=== PATIENT | male | born 1940 | race Caucasian/White ===

== ENCOUNTER 2017-08-14 12:25 | Inpatient (IN) | payer MEDICARE, OTHER ==
[2017-08-14] MEDS ORDERED: Hydrocortisone TAB* 5 MG PO ONE ×2 (14:03→14:31)
--- NOTE | 2017-08-14 14:43 | ED ---
Upper Extremity Pain - HPI Summary HPI Summary: Rt hand dominant pt here w/ swollen, bruised and painful Rt arm since falling on Sunday. Denies numbness, tingling, but is limited with abilities with arm since fall. Pt resides at [facility] as an independent resident with his . Pt has many medical issues, including some cognitive/memory issues however presents as alert and oriented today. He was sent here today as an outpt for imaging per DANIEL Magana, who was told he fell and had arm swelling. A brain CT and UE XR's were ordered. Brain CT w/o acute findings however he does have a Rt forearm proximal, intra-articular ulnar fracture with distracted fragment by 1.3cm. Associated soft tissue swelling on XR correlates with clinical presentation of gross edema, ecchymosis and warmth to touch here. He is also found to have small joint effusion. He reports pain is 3/10 at rest but worse w/ movement. reports he's not on anti-coagulation however he bleeds easily. Med hx significant for adrenal insufficiency 2ndry to pituitary tumor removed and radiated years ago. He takes hydrocortisone daily in divided doses and has never taken a stress dose although this has been recommended by his initial prescriber (double his regular dose). He was due for his noon time dose of 5mg - it's now 14:00. - History of Current Complaint Chief Complaint: EDExtremityUpper Stated Complaint: RT ARM PAIN/SWELLING Time Seen by Provider: 08/14/17 12:37 Hx Obtained From: Patient, Family/Accounts Payable Assistant - - Allergies/Home Medications Allergies/Adverse Reactions: Allergies Allergy/AdvReac Type Severity Reaction Status Date / Time No Known Allergies Allergy Verified 09/27/16 14:52 Home Medications: Home Medications Carvedilol TAB* [Coreg TAB*] 3.125 mg PO BID 08/14/17 [History Confirmed ] Cholecalciferol [Vitamin D] 1,000 unit PO QAM 08/14/17 [History Confirmed ] Cyanocobalamin TAB* [Vitamin B12 TAB*] 1,000 mcg PO QAM 08/14/17 [History Confirmed 08/14/17] Dutasteride (NF) [Avodart (NF)] 0.5 mg PO DAILY 08/14/17 [History Confirmed ] Fesoterodine (NF) [Toviaz (NF)] 8 mg PO DAILY 08/14/17 [History Confirmed ] Hydrocortisone TAB* [Cortef TAB*] 15 mg PO QAM 08/14/17 [History Confirmed 08/14] Hydrocortisone TAB* [Cortef*] 5 mg PO BID 08/14/17 [History Confirmed 08/14/17] Lactobacillus Acidophilu (GG)* [Culturelle*] 1 cap PO QAM 08/14/17 [History Confirmed 08/14/17] Lisinopril TAB* [Prinivil TAB*] 5 mg PO QAM 08/14/17 [History Confirmed 08/14/17 ] Metronidazole (Topical) [Metrogel] 1 % TOPICAL DAILY 08/14/17 [History Confirmed 08/14/17] Multivitamins/Minerals TAB* [Theragran/minerals TAB*] 1 tab PO QAM 08/14/17 [ History Confirmed 08/14/17] Vhxxluvw-Morxulxvgq-Uwkurywph [Triple Antibiotic] 1 oin TOPICAL DAILY 08/14/17 [ History Confirmed 08/14/17] Pantoprazole TAB (NF) [Protonix TAB (NF)] 40 mg PO QAM 08/14/17 [History Confirmed 08/14/17] Pregabalin CAP(*) [Lyrica CAP(*)] 100 mg PO BEDTIME 08/14/17 [History Confirmed 08/14/17] PMH/Surg Hx/FS Hx/Imm Hx Previously Healthy: Yes Endocrine/Hematology History: Reports: 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 - takes synthroid, Autoimmune Disease - rosacia - metrogel, Other Endocrine/Hematological Disorders - pituatry adenoma removed: 2ndry adrenal insufficiency, thyroid, testosteron Denies: Hx Diabetes Cardiovascular History: Reports: Hx Hypertension - lisinopril, Other Cardiovascular Problems/Disorders - LBBB - takes carvedilol Denies: Hx Pacemaker/ICD Respiratory History: Reports: Hx Pneumonia - 2002, 2003 GI History: Reports: Hx Gall Bladder Disease, Hx Gastroesophageal Reflux Disease - pantoprazole 40mg, Hx Hiatal Hernia, Other GI Disorders - CHRONIC CHOLECYSTITIS History: Reports: Hx Benign Prostatic Hyperplasia, Hx Renal Disease - abnormal gfr, Other Problems/Disorders - prominent vessels in prostate - on avodart, toviaz Denies: Hx Dialysis Musculoskeletal History: Reports: Hx Back Problems - LBP - nortriptyline, lyrica - follows w/ pain management Sensory History: Reports: Hx Cataracts, Hx Contacts or Glasses, Hx Hearing Aid, Hx Hearing Problem Opthamlomology History: Reports: Hx Cataracts, Hx Contacts or Glasses Neurological History: Reports: Other Neuro Impairments/Disorders - poor memory, per patient. 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 REMOVAL BENIGN MASSES L AND R [facility] [place]. 2005 CARDIAC CATH [facility] - NO STENTING. 2011 L ANKLE [facility] - R/T INFECTION. [id number]. 08/2015 GALLBLADDER Hx Anesthesia Reactions: No Infectious Disease History: No Infectious Disease History: Denies: Traveled Outside the [place] in Last 30 Days - Family History Known Family History: Positive: None - Social History Occupation: Retired Lives: With Family - at [facility] Alcohol Amount: SMALL AMT. WINE DAILY Hx Substance Use: No Substance Use Type: Reports: None Hx Tobacco Use: Yes - not currently Smoking Status (MU): Former Smoker Amount Used/How Often: 4-5 CIGS DAILY Length of Time of Smoking/Using Tobacco: 3 YEARS Have You Smoked in the Last Year: No Review of Systems Constitutional: Negative Negative: Fever, Chills, Fatigue Eyes: Negative Negative: Photophobia, Blurred Vision, Diplopia ENT: Negative Negative: Epistaxis, Dental Pain, Sore Throat, Ear Ache Cardiovascular: Negative Respiratory: Negative Gastrointestinal: Negative Positive: no symptoms reported Positive: Arthralgia, Myalgia, Decreased ROM, Edema Positive: Bruising Neurological: Negative Negative: Headache Psychological: Normal All Other Systems Reviewed And Are Negative: Yes Physical Exam Triage Information Reviewed: Yes Vital Signs On Initial Exam: Initial Vitals Temp Pulse Resp BP Pulse Ox 97.8 F 93 18 133/83 99 08/14/17 12:34 08/14/17 12:34 08/14/17 12:34 08/14/17 12:34 08/14/17 12:34 Vital Signs Reviewed: Yes Appearance: Positive: Well-Appearing, No Pain Distress - at rest 3/10 - with movement more pain but is tolerable - does not want medication for pain at this time, Well-Nourished Skin: Positive: Warm, Skin Color Reflects Adequate Perfusion, Dry - diffuse ecchymosis and edema about the Rt forearm - most notably proximal region and distal to wrist but does not effect hand; ventral aspect of elbow and forearm w / purpuric ecchymosis; no skin breakdown observed Head/Face: Positive: Normal Head/Face Inspection - rosacea Eyes: Positive: Normal, EOMI ENT: Positive: Normal ENT inspection, Hearing grossly normal, Pharynx normal Respiratory/Lung Sounds: Positive: Breath Sounds Present Cardiovascular: Positive: Pulses are Symmetrical in both Upper and Lower Extremities Abdomen Description: Positive: Nontender, Soft Bowel Sounds: Positive: Present Musculoskeletal: Positive: Strength/ROM Intact - Rt shoulder, wrist and phalanges moving well. He reports he's been using this extremity to eat and drink since injury w/o issue, Limited @ - Rt elbow extension Neurological: Positive: Normal, Sensory/Motor Intact, Alert, Oriented to Person Place, Time, CN Intact II-III Psychiatric: Positive: Normal Procedures - Splinting Location: Rt UE Hand-Made Type: fiberglass Splint: posterior long arm Pre-Proc Neuro Vasc Exam: normal Post-Proc Neuro Vasc Exam: normal Diagnostics - Vital Signs Vital Signs Temp Pulse Resp BP Pulse Ox 08/14/17 12:34 97.8 F 93 18 133/83 99 - Laboratory Lab Statement: Any lab studies that have been ordered have been reviewed, and results considered in the medical decision making process. Re-Evaluation - Re-Evaluation First Eval Change: Improved - s/p splint Course/Dx - Course Course Of Treatment: Pt presents w/ Rt UE swelling and bruising after falling 4 days ago. He was seen by Izzy SANCHEZ at [facility] today who ordered outpt imaging. Upon images being reviewed today, he was found to have proximal ulnar fx w/ edema and effusion. His brain CT was w/o acute pathology. He was sent to the ED for further investigation of issues. He does not appear to have compartment syndrome although this could certainly develop as he has a great deal of swelling and bruising here. Discussed w/ ortho PA Jenelle Knutson who spoke w/ Dr. Aguirre - reports Dr. Aguirre will perform surgery tomorrow for pt. He will be admitted under Dr. Hortencia Lopez's service (spoke w/ her and she agrees to see pt tonight) and transitioned into hospital by myself - preop orders set as well. His evening stress dose of hydrocortisone has been ordered along with acetaminophen PRN pain but remaining meds and DVT prophylaxis withheld for physician to review. He reports improvement in pain w/ splint placement here in ED. Will be taken up to the floor. He is in stable condition. May eat until midnight at which time he will be made NPO. NOTE: Discussed w/ Dr. Mendiola. - Diagnoses Provider Diagnoses: Closed fracture of ulna, proximal, right, Adrenal insufficiency Discharge - Discharge Plan Condition: Stable Disposition: ADMITTED TO [facility]
[2017-08-14] MEDS ORDERED: Acetaminophen TAB* 325 MG PO PRN ×2 (16:48→21:25)
--- NOTE | 2017-08-14 17:44 | RAD ---
Indication: Preop. Single view of the chest demonstrates no mediastinal shift. Heart is at the upper limits of normal in size. There appears to be some reticular markings in the left lung base consistent with chronic interstitial disease unchanged from June 20, 2017. CT demonstrates interstitial markings in this area. No alveolar consolidation is noted. IMPRESSION: Likely chronic interstitial disease in left base with no definite pneumonia.
[2017-08-14 18:08] LABS: ABS Basophils 0.1 10^3/ul (0-0.2); ABS Eosinophils 0.1 10^3/ul (0-0.6); ABS Monocytes 0.7 10^3/ul (0-0.8); ABS Neutrophils 7.2 10^3/ul (1.5-7.7); ABS Nucleated RBC 0 10^3/ul; Eosinophil % 1.4 % (0-6); Hematocrit 38 % (42-52); Hemoglobin 12.5 g/dl (14.0-18.0); Mean Corpuscular HGB Conc 33 g/dl (31-36); Mean Corpuscular Hemoglobin 28 pg (27-31); Mean Corpuscular Volume 84 fL (80-94); Mean Platelet Volume 8 um3 (7.4-10.4); Nucleated Red Blood Cells % 0; Platelet Count 176 10^3/ul (150-450); Red Blood Count 4.51 10^6/ul (4.0-5.4); Red Cell Distribution Width 17 % (10.5-15); White Blood Count 9.1 10^3/ul (3.5-10.8)
[2017-08-14 18:23] LABS: INR 1.01 (0.77-1.02)
[2017-08-14 18:39] LABS: EGFR Non-African American 81.4 (>60)
[2017-08-14 18:42] LABS: Urine Appearance Clear; Urine Blood Negative (Negative); Urine Color Yellow; Urine Ketones Negative (Negative); Urine Protein Negative (Negative); Urine Specific Gravity 1.023 (1.010-1.030); Urine Urobilinogen Negative (Negative)
[2017-08-14] MEDS ORDERED: Hydrocortisone TAB* 10 MG PO ONE (20:00)
[2017-08-14] MEDS: Nortriptyline CAP* 10 MG PO SCH (22:10)
[2017-08-14] MEDS: Pregabalin CAP(*) 100 MG PO SCH (22:10)
--- NOTE | 2017-08-14 22:56 | CONS ---
CONSULTATION REPORT: DATE OF CONSULT: 08/14/17 PROVIDER: Dr. John Aguirre. CHIEF COMPLAINT: Right arm pain. HISTORY OF PRESENT ILLNESS: The patient presents to [facility] Emergency Room on 08/14/17 due to right arm pain, swelling, and bruising since 08/11/17 after falling when he slipped on the ice on Sunday. The patient typically walks with walking sticks to stabilize him and on this occasion, he did not have his sticks which he feels caused him slip on the ice. The patient is unaware if he fell on to an outstretched wrist or simply on to his right side. He did have pain immediately, but it has never been excruciating. He has continued to use his RUE with some limitation and with 3/10 pain. The patient denies any numbness, tingling, or throbbing. The patient was sent in today because he was seen by the nurse practitioner at his living facility, who sent him in for x-rays. The patient resides at [facility] as an independent resident with his . Patient reports no LOC and no other injuries with the fall. He did hit his head but denies any headaches, confusion or change in vision. The patient is on no anticoagulation. He does not take aspirin. He does bruise and bleed easily. He has had surgery in the past, which he tolerated well with no negative side effects from anesthesia. He has no history of heart attack or stroke. He does not see a network security engineer. He does not see a grocery store manager. He does have thyroid disease. He does not have diabetes. PAST MEDICAL HISTORY: His medical issues include memory issues, thyroid disease , rosacea, pituitary adenoma, adrenal insufficiency, hypertension, left bundle- branch block, GERD, BPH, renal disease. ALLERGIES: No known drug allergies. FAMILY HISTORY: Noncontributory. SOCIAL HISTORY: The patient lives at [facility] with his . He is independent. He does not smoke though did formerly. He drinks wine socially. He does not use drugs. REVIEW OF SYSTEMS: Constitutional: No fever or chills. No fatigue. Eyes: No blurred vision. No changes in vision. Head: The patient did fall on to the right side of his head he has bruising but no pain, CT was unremarkable for intracranial pathology. He does not have any pain or headache. ENT: The patient does not wear dentures and does not have any acute vision change. He he hard of hearing at baseline. Cardiovascular: No history of PA. No chest pain. No irregular beats. Respiratory: No shortness of breath. No cough. GI : No abdominal pain, nausea, vomiting, or diarrhea. : No dysuria. No difficulty with urinary stream but has HX BPH. MSK: Right arm pain s/p mechanical fall. Neurologic: No numbness or tingling. No confusion but baseline memory issues. Skin: Bruising of right arm and right side of head but no rashes or lacerations. Heme: The patient does bleed and bruise easily, though he is on no blood thinners. He has no history of blood clots. He has no history of DVT or PE. PHYSICAL EXAM: Vital Signs: Temperature 97.8, pulse 93, respiratory rate 18, oxygen saturation 99%, blood pressure 133/83. General: The patient is well- appearing. He is in no acute distress. He carries on appropriate conversation with me. HEENT: Normocephalic, atraumatic. The patient does have ecchymosis to the right temporal region, but he is nontender over this region. He does not have any palpable abnormality. Eyes: EOMI. Mouth: No dentures. No injuries to the inside of his mouth obvious. Cardio: S1, S2, 1 to 2/6 systolic murmur. Respiratory: Clear to auscultation bilaterally without wheezes , rales, or rhonchi. Abdomen: Soft, nontender. Musculoskeletal: Right upper extremity with significant ecchymosis along the volar surface of the right forearm from the elbow to the wrist. The patient is mildly tender over the entirety of this region. There is no obvious palpable bony abnormality. The patient is able to flex and extend his elbow, wrist, MCPs, DIPs and PIPs. He is able to supinate and pronate his forearm. He is able to produce range of motion of his shoulder including abduction and forward flexion. The patient has 5/5 nursing teacher strength. Forearm is edematous but is not tense. Forearm and hand are warm to touch. Neuro: Sensation is intact throughout the right upper extremity. Skin: Ecchymosis of volar aspect of right forearm from elbow to wrist. Ecchymosis of the right temporal region. Vasc: 2+ radial pulse RUE, brisk capillary refill distally. DIAGNOSTIC STUDIES/LAB DATA: Imaging of the right elbow and forearm, two views of the right forearm show a distracted proximal ulna fracture. Distracted fragment is by 1.3 cm. There is an associated soft tissue swelling. No other fractures are evident. Right elbow, 4 views of the distracted intraarticular fracture of the proximal ulna fracture. The fracture fragment is distracted approximately 1.3 cm. No other fractures are evident. There is a small joint effusion. There is mild diffuse soft tissue swelling. ASSESSMENT: Proximal ulna fracture. PLAN: The patient will be admitted by Dr. Ankita Lopez, his primary care doctor. The patient will be n.p.o. for surgery, 08/15/[address] Aguirre. She will perform an ORIF. Emergency room CYNTHIA has agreed to place the patient in a splint. Dr. Lopez will provide confirmation of medical optimization for surgery. CYNTHIA GONZALEZ [id number]/[facility] #: [id number] MTDD
[2017-08-14] MEDS: Carvedilol TAB* 3.125 MG PO SCH (23:54)
[2017-08-15] MEDS: NS 0.9% 1000 ML* 1,000 ML IV SCH ×2 (00:33→18:10)
--- NOTE | 2017-08-15 00:36 | HP ---
HISTORY AND PHYSICAL: DATE OF ADMISSION: 08/14/17 HISTORY OF PRESENT ILLNESS: Gregor Guzmán is a 77-year-old man admitted with a right olecranon fracture. The patient was in his usual state of health until 3 days ago when he was walking into his cottage at [facility] [place] from the car. He and his had been out grocery shopping. She was unloading the groceries and did not notice that he was walking without his walking sticks. [facility] he was lying on the ground on his right side. He had hit his head and over the course of the next few days, although he could use his arm and did not have significant pain, he had extensive bruising. For this reason, he was seen by the nurse practitioner, who sent him for x-rays and the olecranon fracture was discovered and so he is being admitted at this time and will be having surgery tomorrow. PAST MEDICAL HISTORY: Otherwise significant for the following medical problems: 1. Panhypopituitarism, status post removal of a pituitary tumor. 2. Chronic low back pain following a fall for which he is being treated at the [facility] and has been getting spinal corticosteroid injections. He was due to get an injection today, but this was deferred because of the present injury. 3. History of depression for which he is being treated (see medications below). 4. History of hypertension. 5. History of lymphoma, in remission. 6. History of hypertension. 7. Left bundle-branch block with mild cardiomyopathy followed by Dr. Mauri Salas from Cardiology. 8. Gastroesophageal reflux disease. 9. History of nephrolithiasis. 10. History of peptic ulcer disease with history of acute gastrointestinal bleeding due to gastric ulcer (antral, prepyloric) December 2014. 11. History of hepatic cysts and hemangiomas. 12. History of colonic adenomatous polyps. 13. History of possible cerebrovascular accident, left josé antonio September 2014. 14. History of asymptomatic pancreatic cyst. 15. History of BPH. 16. Diverticulosis. 17. History of 5 mm pulmonary nodule noted on CT, 11/13/12. PAST SURGICAL HISTORY: Prior surgeries include: 1. Pituitary adenoma surgery for pituitary tumor with acromegaly in 1983 ( transsphenoidal resection). 2. TURP in 2007 for BPH. 3. Cataract removal. 4. Tonsillectomy. 5. Cholecystectomy. CURRENT MEDICATIONS: 1. Carvedilol 3.125 mg twice a day. 2. Pantoprazole 40 mg every day. 3. Nortriptyline 10 mg 2 at bedtime. 4. Duloxetine 60 mg daily. 5. Lisinopril 5 mg daily. 6. Hydrocortisone 15 mg in the morning, 5 mg at lunch, and 5 mg in the evening. 7. Levothyroxine 100 mcg daily. 8. D3 1000 units daily. 9. B12 1000 mcg daily. 10. Testosterone injection 200 mg/mL, 200 mg IM q.14 days. 11. Acetaminophen 1000 mg daily at lunch. 12. Toviaz 8 mg daily. 13. Probiotic 1 daily. 14. MultiVites 1 daily. 15. Metronidazole gel daily. 16. Lyrica 100 mg at bedtime. 17. Dutasteride 0.5 mg daily. ALLERGIES: None. HABITS: Tobacco - none. ETOH - none at present. FAMILY HISTORY: Noncontributory. SOCIAL AND PERSONAL HISTORY: The patient is a retired physicist. He lives with his in [place] [facility] [place] [facility]. He has had a MOLST form in the past, which stated that he was do not resuscitate, but he wants to be a full code at this point. REVIEW OF SYSTEMS: Generally, he had not been feeling well because of chronic back pain, although this has been better recently. He generally walks with walking stick. Skin: He uses MetroGel for acne rosacea. HEENT: Negative. Nodes: Negative. Heme: See above. Lymphoma treated by Dr. Philip in 2015, currently in remission. Endocrine: See above. Respiratory: Negative. Cardiovascular: See above. GI: See above. : See above. Musculoskeletal: See above. Neuro: See above. Psychiatric: See above. PHYSICAL EXAMINATION GENERAL: He is an elderly white male with his right arm currently in a splint, in no acute distress. VITAL SIGNS: On coming to the emergency room, blood pressure 133/83, pulse 93, respirations 18, temperature 97.8, O2 sat is 99%. HEENT: Trauma as noted above. PERRLA. Mouth: Pharynx unremarkable. NECK: Supple. No thyromegaly. CHEST: Clear. HEART: Normal S1, S2. No murmurs, gallops or rubs. ABDOMEN: Soft, nontender. There are no masses or organomegaly. EXTREMITIES: He is able to move extremities well except for his right arm, which is in the splint. He has no evidence of hip fracture. I observed him walking to the bathroom with standby assist of an aide. NEUROLOGIC: He is intact without gross focal or lateralizing signs. SKIN: Shows ecchymosis on the right adventist area and a small ecchymosis on his right lateral thigh. He apparently has a very large ecchymosis of the right arm , but it is currently wrapped and I cannot see it. DIAGNOSTIC STUDIES/LAB DATA: CBC, WBC 9.1, H and H 12.5/38, MCV 84, PLT 176, 000. Of note, his last hematocrit was 45 on 04/16/17, so I suspect the anemia is due to blood loss into his arm. INR, PTT normal. Chemistries, sodium 130, potassium 4.3, chloride 99, CO2 of 26, BUN and creatinine 20/0.90, glucose 108, calcium 8.4. Rest of the comprehensive metabolic panel was within normal limits. Urinalysis, yellow, specific gravity 1.023, pH 5, dipsticks negative except for ascorbic acid, which is high. Chest x-ray shows no acute disease. CT of the brain showed no intracranial pathology. X-rays of the right forearm showed a distracted proximal ulnar fracture. EKG is pending. IMPRESSION: The patient with proximal ulnar fracture. The patient's spoke to orthopedist on-call, Dr. Granado. He explained that the patient would have no strength in the arm without surgery and that surgery is always done in these cases. Dr. Aguirre will be operating on the patient in the morning. The patient's will be present to discuss this with her. His usual medications are going to be continued. He will be on slightly higher doses of hydrocortisone and I will be continuing his other usual medications. IV fluids will be started at midnight when he becomes n.p.o. He is a full code. [id number]/[facility] #: [id number] MTDD
[2017-08-15] MEDS: Hydrocortisone INJ* 100 MG VIAL IV SCH ×2 (06:12→18:10)
[2017-08-15] MEDS: Levothyroxine TAB* 100 MCG TAB PO SCH (06:13)
[2017-08-15] MEDS: Carvedilol TAB* 3.125 MG PO SCH ×2 (08:14→20:49)
[2017-08-15] MEDS: Omeprazole CAP* 20 MG PO SCH (08:15)
--- NOTE | 2017-08-15 08:31 | PN ---
Progress Note - Progress Note Date of Service: 08/15/17 Note: Pt seen and examined. S/p GLF yesterday because unsteady (no walking poles). Closed R olecranon fracture Temp Pulse Resp BP Pulse Ox 97.3 F 81 18 130/79 98 08/15/17 07:39 08/15/17 07:39 08/15/17 08:00 08/15/17 07:39 08/15/17 07:39 NAD. AAOx3. pleasant and cooperative. Splint in place. SILT grossly distally. Brisk cap refill. Able to flex/ext tips of digits. Laboratory Results - last 24 hr 08/14/17 08/14/17 08/14/17 18:00 18:00 18:00 WBC 9.1 RBC 4.51 Hgb 12.5 L Hct 38 L MCV 84 MCH 28 MCHC 33 RDW 17 H Plt Count 176 MPV 8 Neut % (Auto) 79.3 Lymph % (Auto) 11.0 L [place] % (Auto) 7.4 Eos % (Auto) 1.4 Baso % (Auto) 0.9 Absolute Neuts (auto) 7.2 Absolute Lymphs (auto) 1.0 Absolute Monos (auto) 0.7 Absolute Eos (auto) 0.1 Absolute Basos (auto) 0.1 Absolute Nucleated RBC 0 Nucleated RBC % 0 INR (Anticoag Therapy) 1.01 APTT 32.8 Sodium 130 L Potassium 4.3 Chloride 99 L Carbon Dioxide 26 Anion Gap 5 BUN 20 Creatinine 0.90 Est GFR ( Amer) 104.7 Est GFR (Non-Af Amer) 81.4 BUN/Creatinine Ratio 22.2 H Glucose 108 H Calcium 8.4 L Total Bilirubin 0.70 AST 16 ALT 13 Alkaline Phosphatase 53 Total Protein 5.3 L Albumin 3.5 Globulin 1.8 L Albumin/Globulin Ratio 1.9 Urine Color Urine Appearance Urine pH Ur Specific [place] Urine Protein Urine Ketones Urine Blood Urine Nitrate Urine Bilirubin Urine Urobilinogen Ur Leukocyte Esterase Urine Glucose Urine Ascorbic Acid 08/14/17 18:10 WBC RBC Hgb Hct MCV MCH MCHC RDW Plt Count MPV Neut % (Auto) Lymph % (Auto) [place] % (Auto) Eos % (Auto) Baso % (Auto) Absolute Neuts (auto) Absolute Lymphs (auto) Absolute Monos (auto) Absolute Eos (auto) Absolute Basos (auto) Absolute Nucleated RBC Nucleated RBC % INR (Anticoag Therapy) APTT Sodium Potassium Chloride Carbon Dioxide Anion Gap BUN Creatinine Est GFR ( Amer) Est GFR (Non-Af Amer) BUN/Creatinine Ratio Glucose Calcium Total Bilirubin AST ALT Alkaline Phosphatase Total Protein Albumin Globulin Albumin/Globulin Ratio Urine Color Yellow Urine Appearance Clear Urine pH 5.0 Ur Specific [place] 1.023 Urine Protein Negative Urine Ketones Negative Urine Blood Negative Urine Nitrate Negative Urine Bilirubin Negative Urine Urobilinogen Negative Ur Leukocyte Esterase Negative Urine Glucose Negative Urine Ascorbic Acid * H A/P 77 yo RHD M with R displaced olecranon fracture Plan for ORIF R elbow today in [place]. NPO Ancef recreation facilities supervisor to [place]. NWB. will work with PT/OT tomorrow and dispo pending recommendations
[2017-08-15] MEDS ORDERED: Bupivacaine 0.25% SDV* 30 ML ONE (09:41)
[2017-08-15] MEDS ORDERED: ceFAZolin 2 GM PREMIX (*) 2 GM/50 ML BAG IVPB ONE (10:23)
[2017-08-15] MEDS ORDERED: Mivacurium Chloride* 20 MG/10 ML VIAL IV ONE (10:39)
[2017-08-15] MEDS ORDERED: Propofol* 10 MG/ML 20 ML BTL IV PUSH ONE (10:39)
[2017-08-15] MEDS ORDERED: fentaNYL* 50 MCG/ML 2 ML VIAL (100 MCG VIAL) ONE ×2 (10:39→11:54)
[2017-08-15] MEDS ORDERED: EPHEDrine (Pressors)* 50 MG/ML VIAL ONE (11:23)
[2017-08-15] MEDS ORDERED: Phenylephrine INJ* 10 MG/ML 1 ML VIAL (10 MG) ONE (12:18)
[2017-08-15] MEDS ORDERED: Metoprolol Tartrate IV* 1 MG/ML 5 ML VIAL ONE (12:18)
[2017-08-15] MEDS ORDERED: Neostigmine Methylsulfate* 2 MG/2 ML SYRINGE ONE (12:37)
[2017-08-15] MEDS ORDERED: Glycopyrrolate IV* 0.2 MG/ML 1 ML VIAL ONE (12:37)
[2017-08-15] MEDS: Acetaminophen TAB* 325 MG PO SCH (15:29)
[2017-08-15] MEDS: DULoxetine DR CAP* 60 MG CAP.DR PO SCH (15:29)
[2017-08-15] MEDS: Finasteride TAB* 5 MG PO SCH (15:30)
[2017-08-15] MEDS: FESOTERODINE 8 MG PO SCH (18:05)
[2017-08-15] MEDS ORDERED: Ibuprofen TAB* 400 MG ONE (19:51)
[2017-08-15] MEDS: Ibuprofen TAB* 400 MG PO PRN (20:49)
[2017-08-15] MEDS: Nortriptyline CAP* 10 MG PO SCH (20:50)
[2017-08-15] MEDS: Pregabalin CAP(*) 100 MG PO SCH (20:50)
--- NOTE | 2017-08-15 21:19 | RAD ---
Indication: Aspiration. Single frontal view of the chest performed at 2038 hours was reviewed. Comparison is made with previous exam dated August 14, 2017. Cardiomegaly is noted. Chronic changes are noted in the left base. No pleural fluid or pneumonia is noted. IMPRESSION: NO ACTIVE CARDIOPULMONARY DISEASE IS NOTED. CHRONIC CHANGES ARE NOTED IN THE LEFT COSTOPHRENIC ANGLE.
--- NOTE | 2017-08-16 00:29 | OP ---
CC: PCP, Ankita Lopez MD * DATE OF OPERATION: 08/15/17 - ROOM #418 DATE OF : 36 ATTENDING SURGEON: John Aguirre MD SCIENCE WRITER: CYNTHIA Anguiano and Giancarlo Maurice MS 3 ANESTHESIOLOGIST: Dr. Amezcua. ANESTHESIA: General. PRE-OP DIAGNOSIS: Right displaced olecranon fracture. POST-OP DIAGNOSIS: Right displaced olecranon fracture. OPERATIVE PROCEDURE: Open reduction, internal fixation of right olecranon. COMPLICATIONS: None. ESTIMATED BLOOD LOSS: Minimal. TOURNIQUET TIME: 47 minutes at 250 mmHg. IMPLANTS USED: Synthes proximal olecranon locking plate with the appropriate length screws. INDICATIONS: Gregor Guzmán is a 77-year-old right-hand dominant male who sustained a fall after he lost his balance outside. He landed on his elbows, was diagnosed with a displaced olecranon fracture. Risks and benefits of surgery versus nonoperative treatment were discussed at length and included but not limited to bleeding, infection, damage to nerves, vessels, surrounding structures, wound nonhealing, persistent pain, need for further surgery, scaring , stiffness, incomplete relief of symptoms, and risks of anesthesia. The patient lives in an independent living facility and has a mild amount of dementia, but otherwise is very active. Therefore, I agreed to proceed with surgery. He underwent preoperative medical risk assessment by his primary care doctor and was medically stabilized for surgery today. DESCRIPTION OF PROCEDURE: The patient was greeted in the operative area by the attending surgeon. Correct extremity was marked, consent was confirmed. The patient was brought back to the operating suite, placed in a supine position on the operating room table. He underwent general anesthesia and endotracheal intubation after which the patient was positioned in the left lateral decubitus position using a beanbag. All bony prominences were padded. He was secured with a beanbag. An axillary roll was placed. Unsterile tourniquet was placed high on the proximal arm. The splint was removed. The skin was intact with abundant bruising. The right arm was prepped and draped in the usual sterile fashion beginning with chlorhexidine soap, scrub, and alcohol wipe, and a final prep with ChloraPrep. After appropriately surgical pause indicating site, side, procedure, and administration of antibiotics, an incision centered over the distal triceps that curved laterally and down the shaft to the ulna to avoid any incision over the ulnar nerve was then made with a 15 blade. Soft tissues were carefully dissected to expose the fascia. There was abundant hematoma present. It was sharply incised for later closure. The triceps was also incised and exposed to allow for closure over the plate after surgery. The fracture fragment was identified. There was a minimal amount of comminution in the soft tissues. The soft tissue periosteum was removed from the edges of the fracture. The hematoma was removed with rongeur, the curettes, and irrigation. Once the fracture edges were cleaned, it was provisionally reduced and secured with 2 K- wires. Alignment was checked under the x-ray to make sure it was well aligned up. Once this was done, the appropriate length plate was chosen. First ,a shaft screw placed distally, with nonlocking screw was placed to provisionally position the plate. Then, proximally a locking screw was placed to allow for some compression. This was found to restore the anatomy. He was able to be fully extended and fully flexed. The K-wires were removed and the remaining screws were placed proximally. These were locking screws across the fracture site distally. Two more screws were placed. The patient was having some blood pressure. Therefore, Anesthesia requested that the case be accelerated somewhat. Final images were obtained. The wounds were copiously irrigated with sterile saline. The #2 Ethibond was used to close the triceps fascia over the plate and through the plate. A 2-0 Vicryl was used to close the fascial layer over the plate. The wounds were irrigated again. The subcutaneous tissue and skin were closed with 2-0 Vicryl and dontrell. The wound was injected with 20 cc of 0.25% Marcaine plain. Sterile dressings were applied. The tourniquet was released for a total of 47 minutes. Posterior splint was applied. He was transferred to the supine position and then gently awakened from anesthesia. He was then transferred to the PACU in guarded condition. His extremities were pink and well perfused at the end of the case. POSTOPERATIVE PLAN: He will be nonweightbearing. He will wear splint for about 10 to 14 days. He will be placed on postoperative antibiotics for approximately 10 to 14 days as well as analgesia. DVT prophylaxis will be Lovenox to heparin while in house, but he does not require any postoperatively for the surgery. He will be seen in the office in 10 to 14 days with repeat x- rays. Then, we will transition him out of the splint into a removable splint to work on elbow, hand, and wrist range of motion. I will see the patient back in 10 to 14 days and follow him in the hospital. [id number]/[facility] #: [id number] CARLEEN
[2017-08-16] MEDS: Ibuprofen TAB* 400 MG PO PRN ×2 (04:08→08:55)
[2017-08-16] MEDS: Levothyroxine TAB* 100 MCG TAB PO SCH (06:33)
[2017-08-16] MEDS: Hydrocortisone INJ* 100 MG VIAL IV SCH ×2 (06:34→18:37)
[2017-08-16 06:59] LABS: ABS Basophils 0.1 10^3/ul (0-0.2); ABS Eosinophils 0.2 10^3/ul (0-0.6); ABS Lymphocytes 1.1 10^3/ul (1.0-4.8); ABS Monocytes 0.8 10^3/ul (0-0.8); ABS Neutrophils 6.6 10^3/ul (1.5-7.7); ABS Nucleated RBC 0 10^3/ul; Eosinophil % 1.9 % (0-6); Hematocrit 37 % (42-52); Hemoglobin 12.2 g/dl (14.0-18.0); Lymphocyte % 12.3 % (25-47); Mean Corpuscular HGB Conc 33 g/dl (31-36); Mean Corpuscular Hemoglobin 28 pg (27-31); Mean Corpuscular Volume 84 fL (80-94); Mean Platelet Volume 8 um3 (7.4-10.4); Nucleated Red Blood Cells % 0.1; Platelet Count 156 10^3/ul (150-450); Red Blood Count 4.39 10^6/ul (4.0-5.4); Red Cell Distribution Width 17 % (10.5-15); White Blood Count 8.8 10^3/ul (3.5-10.8)
[2017-08-16 07:16] LABS: EGFR Non-African American 74.7 (>60)
[2017-08-16] MEDS: Omeprazole CAP* 20 MG PO SCH (07:38)
[2017-08-16] MEDS: Carvedilol TAB* 3.125 MG PO SCH ×2 (08:47→21:13)
[2017-08-16] MEDS: Finasteride TAB* 5 MG PO SCH (12:33)
[2017-08-16] MEDS: DULoxetine DR CAP* 60 MG CAP.DR PO SCH (12:33)
[2017-08-16] MEDS: Acetaminophen TAB* 325 MG PO SCH (12:34)
[2017-08-16] MEDS: ceFAZolin 1 GM in Dextrose (*) 1 GM/50 ML BAG IVPB SCH ×2 (12:54→21:06)
--- NOTE | 2017-08-16 13:48 | PN ---
Progress Note - Progress Note Date of Service: 08/16/17 SOAP: Subjective: []Patient seen at bedside. He is accompanied by his . Pain of RUE is tolerable. Denies numbness or tingling or RUE. Denies fever, chills, CP, SOB. Objective: []General: Patient is well appearing, NAD. RUE: Splint in place, CDI. Right hand with mild edema. Flexion and extension of all 5 MCPs, DIPs and PIPs intact. Sensation intact to light touch throughout right hand. Capillary refill less than 2 seconds distally. Radial pulse 2+ Vital Signs Temp 97.5 F 08/16/17 07:24 Pulse 85 08/16/17 07:24 Resp 18 08/16/17 07:24 BP 126/72 08/16/17 07:24 Pulse Ox 95 08/16/17 07:24 Intake & Output 08/15/17 08/16/17 08/16/17 18:59 06:59 18:59 Intake Total 2154 1538 220 Output Total 50 200 Balance 2104 1338 220 Intake: IV Fluids 2154 838 LR 1600 NS (0.9%) 838 IVPB 500 NS (0.9%) 500 Oral 200 220 Output: Urine 0 200 Estimated Blood Loss 50 Other: Estimated Void Large Medium # Bowel Movements 0 # Voids 2 1 Laboratory Last Values WBC 8.8 10^3/ul (3.5-10.8) 08/16/17 06:49 RBC 4.39 10^6/ul (4.0-5.4) 08/16/17 06:49 Hgb 12.2 g/dl (14.0-18.0) L 08/16/17 06:49 Hct 37 % (42-52) L 08/16/17 06:49 MCV 84 fL (80-94) 08/16/17 06:49 MCH 28 pg (27-31) 08/16/17 06:49 MCHC 33 g/dl (31-36) 08/16/17 06:49 RDW 17 % (10.5-15) H 08/16/17 06:49 Plt Count 156 10^3/ul (150-450) 08/16/17 06:49 MPV 8 um3 (7.4-10.4) 08/16/17 06:49 Neut % (Auto) 75.5 % (38-83) 08/16/17 06:49 Lymph % (Auto) 12.3 % (25-47) L 08/16/17 06:49 [place] % (Auto) 9.0 % (1-9) 08/16/17 06:49 Eos % (Auto) 1.9 % (0-6) 08/16/17 06:49 Baso % (Auto) 1.3 % (0-2) 08/16/17 06:49 Absolute Neuts (auto) 6.6 10^3/ul (1.5-7.7) 08/16/17 06:49 Absolute Lymphs (auto) 1.1 10^3/ul (1.0-4.8) 08/16/17 06:49 Absolute Monos (auto) 0.8 10^3/ul (0-0.8) 08/16/17 06:49 Absolute Eos (auto) 0.2 10^3/ul (0-0.6) 08/16/17 06:49 Absolute Basos (auto) 0.1 10^3/ul (0-0.2) 08/16/17 06:49 Absolute Nucleated RBC 0 10^3/ul 08/16/17 06:49 Nucleated RBC % 0.1 08/16/17 06:49 INR (Anticoag Therapy) 1.01 (0.77-1.02) 08/14/17 18:00 APTT 32.8 seconds (26.0-36.3) 08/14/17 18:00 Sodium 131 mmol/L (133-145) L 08/16/17 06:49 Potassium 3.8 mmol/L (3.5-5.0) 08/16/17 06:49 Chloride 101 mmol/L (101-111) 08/16/17 06:49 Carbon Dioxide 26 mmol/L (22-32) 08/16/17 06:49 Anion Gap 4 mmol/L (2-11) 08/16/17 06:49 BUN 15 mg/dL (6-24) 08/16/17 06:49 Creatinine 0.97 mg/dL (0.67-1.17) 08/16/17 06:49 Est GFR ( Amer) 96.0 (>60) 08/16/17 06:49 Est GFR (Non-Af Amer) 74.7 (>60) 08/16/17 06:49 BUN/Creatinine Ratio 15.5 (8-20) 08/16/17 06:49 Glucose 92 mg/dL (70-100) 08/16/17 06:49 Calcium 8.4 mg/dL (8.6-10.3) L 08/16/17 06:49 Total Bilirubin 1.20 mg/dL (0.2-1.0) H 08/16/17 06:49 AST 20 U/L (13-39) 08/16/17 06:49 ALT 14 U/L (7-52) 08/16/17 06:49 Alkaline Phosphatase 44 U/L (34-104) 08/16/17 06:49 Total Protein 5.3 g/dL (6.4-8.9) L 08/16/17 06:49 Albumin 3.4 g/dL (3.2-5.2) 08/16/17 06:49 Globulin 1.9 g/dL (2-4) L 08/16/17 06:49 Albumin/Globulin Ratio 1.8 (1-3) 08/16/17 06:49 Urine Color Yellow 08/14/17 18:10 Urine Appearance Clear 08/14/17 18:10 Urine pH 5.0 (5-9) 08/14/17 18:10 Ur Specific [place] 1.023 (1.010-1.030) 08/14/17 18:10 Urine Protein Negative (Negative) 08/14/17 18:10 Urine Ketones Negative (Negative) 08/14/17 18:10 Urine Blood Negative (Negative) 08/14/17 18:10 Urine Nitrate Negative (Negative) 08/14/17 18:10 Urine Bilirubin Negative (Negative) 08/14/17 18:10 Urine Urobilinogen Negative (Negative) 08/14/17 18:10 Ur Leukocyte Esterase Negative (Negative) 08/14/17 18:10 Urine Glucose Negative (Negative) 08/14/17 18:10 Urine Ascorbic Acid * (Negative) H 08/14/17 18:10 Assessment: []POD 1 SP right olecranon ORIF 08/17/17, Dr Aguirre Plan: []Ready to DC from an orthopedic standpoint. If he receives all 3 doses of cefazolin in house no further antibiotic requirement. If discharged today will need PO abx to go home. To be evaluated by medicine and PT to determine DC home vs need for rehab.
[2017-08-16] MEDS: FESOTERODINE 8 MG PO SCH (18:37)
--- NOTE | 2017-08-16 20:02 | PN ---
Progress Note - Progress Note Date of Service: 08/16/17 Note: Pt seen and examined. Pain elbow. Alert and talking on phone. No complaints of numbness and tingling. Taking PO pain meds Temp Pulse Resp BP Pulse Ox 97.6 F 93 16 132/76 94 08/16/17 19:32 08/16/17 19:32 08/16/17 19:32 08/16/17 19:32 08/16/17 19:32 NAD. RUE splint intact. able to flex/ext wrist and digits. SILT grossly distally. brisk cap refill. mild swelling A/P POD#1 from R elbow ORIF NWB continue splint. ice/elevate analgesia post op abx will sign off for now. please call with questions. f/u 10-14 days in my office [phone]
[2017-08-16] MEDS: Nortriptyline CAP* 10 MG PO SCH (21:12)
[2017-08-16] MEDS: Pregabalin CAP(*) 100 MG PO SCH (21:13)
[2017-08-17] MEDS: ceFAZolin 1 GM in Dextrose (*) 1 GM/50 ML BAG IVPB SCH (04:44)
[2017-08-17] MEDS: Levothyroxine TAB* 100 MCG TAB PO SCH (05:54)
--- NOTE | 2017-08-17 07:44 | RAD ---
INDICATION: Right elbow ORIF, right elbow pain, fracture, trauma COMPARISONS: August 14, 2017 TECHNIQUE: Fluoroscopy was provided for a surgical procedure. Total fluoroscopy time is: 34 seconds FINDINGS: Spot images demonstrate internal fixation of the proximal ulna. IMPRESSION: FLUOROSCOPY WAS PROVIDED FOR A SURGICAL PROCEDURE CPT II Codes: 6045F
[2017-08-17] MEDS: Omeprazole CAP* 20 MG PO SCH (07:50)
[2017-08-17] MEDS: Ibuprofen TAB* 400 MG PO PRN (08:15)
[2017-08-17] MEDS: Carvedilol TAB* 3.125 MG PO SCH (08:16)
[2017-08-17 08:18] VITALS: BP 143/82
[2017-08-17] MEDS ORDERED: Hydrocortisone TAB* 5 MG PO ONE (10:00)
--- NOTE | 2017-08-17 11:37 | TRS ---
CC: Marysol Jaquez, [place]; [facility] Coulter at [facility], Resident Care; Dr. Nicolás Sanford DISCHARGE SUMMARY: DATE OF ADMISSION: 08/14/17 DATE OF DISCHARGE: 08/17/17 DISCHARGE DIAGNOSES: 1. Right olecranon fracture. 2. Postoperative delirium. 3. Panhypopituitarism, status post removal of pituitary tumor with acromegaly. 4. Chronic low back pain. 5. History of depression. 6. History of hypertension. 7. History of lymphoma, in remission. 8. Left bundle branch block with mild cardiomyopathy. 9. Gastroesophageal reflux disease. 10. History of peptic ulcer disease. 11. History of nephrolithiasis. 12. History of hepatic cyst and hemangiomas. 13. History of adenomatous polyps of the colon. 14. History of possible cerebrovascular accident, left josé antonio, September 2014. 15. History of asymptomatic pancreatic cyst. 16. History of benign prostatic hypertrophy. 17. Diverticulosis. 18. History of 5-mm pulmonary nodule noted on CT, 11/13/12. 19. Status post transurethral resection of the prostate. 20. Status post cataract removal. 21. Status post cholecystectomy. 22. Status post tonsillectomy. PROCEDURES: Open reduction, internal fixation, right olecranon, for displaced fracture. HISTORY: Gregor Guzmán is a 77-year-old man admitted after having fallen, found to have a right olecranon fracture. Please see the dictated admission note for details of the present illness, past medical history, family history, social and personal history, review of systems, and physical examination. DIAGNOSTIC STUDIES/LAB DATA: CBC: WBC 9.1, H and H 12.5/38, MCV 84, PLT 176K. CBC on 08/16/17: WBC 8.8, H and H 12.2/37, MCV 84, PLT 156K. INR 1.01, PTT 32.8. Chemistries on admission: Sodium 130, potassium 4.3, chloride 99, CO2 26 , BUN and creatinine 20/0.9, glucose 108, calcium 8.4. Otherwise comprehensive metabolic panel was abnormal only for protein of 5.3, globulin 1.8. Chemistries on 08/16/17: Sodium 131, potassium 3.8, chloride 101, CO2 26, BUN and creatinine 15/0.97, calcium 8.4, total bilirubin 1.20, total protein 5.3, globulin 1.9. Of note, he has had chronically low globulins. Urinalysis: Yellow, clear, specific gravity 1.023, pH 5. Dipsticks positive for ascorbic acid. Imaging: Chest on 08/14/17 showed chronic interstitial disease in the left base , no definite pneumonia. Fluoroscopy was done during surgery. Chest x-ray, 08/15/17, showed no active cardiopulmonary disease, chronic changes noted. EKG, on 08/15/17, showed left bundle branch block. This had been seen intermittently previously as well. Operative report, 08/15/17: Open reduction, internal fixation of right olecranon with Synthes proximal olecranon locking plate with appropriate length screws. HOSPITAL COURSE: The patient was admitted for medical management of his panhypopituitarism in the perioperative period. He was seen in consultation by Orthopedics. Operative repair was recommended. He received mild stress doses of steroids with doubling of his usual hydrocortisone dose in the perioperative period on 08/14/2017, 08/15/17 and 08/16/17. His arm was splinted. His other usual medications were continued. IV fluids were given in the perioperative period. He received perioperative antibiotics. He had postoperative delirium which seemed to clear with time. . He has mild memory loss at baseline. His H and H dropped a bit likely due to large amount of blood in his arm and this will be followed as an outpatient. He is being transferred to the [facility]. He was to be nonweightbearing with the right arm. He is to receive physical and occupational therapy. He had an occupational therapy evaluation prior to discharge. MEDICATIONS: At the time of discharge, his medications are as follows: 1. Acetaminophen 975 mg p.o. q.6h. p.r.n. pain and 975 mg p.o. at noon with maximum daily dose of 3 g. 2. Ibuprofen 400 mg q.4h. p.r.n. pain. 3. Carvedilol 3.125 mg twice daily. 4. Duloxetine 60 mg daily. 5. Dutasteride 0.5 mg p.o. daily. 6. Hydrocortisone 15 mg a.m., 5 mg lunch, 5 mg dinner. 7. Levothyroxine 100 mcg daily. 8. Toviaz 8 mg p.o. daily. 9. Nortriptyline 20 mg at h.s. 10. Pantoprazole 40 mg daily. 11. Lyrica 100 mg q.h.s. 12. Lisinopril 5 mg daily. 13. Metronidazole applied to nose q.h.s. 14. Probiotic 1 p.o. daily. 15. Triple antibiotic applied to nose q.a.m. 16. Testosterone enanthate 150 mg injection every 2 weeks. 17. B12 1000 mcg daily. 18. D3 1000 units daily. 19. Multiple vitamin 1 p.o. daily. Lab orders: CBC, CMP, quantitative immunoglobulins, and free testosterone and total testosterone on 08/20/17, and the diagnosis for that is hypogammaglobulinemia and panhypopituitarism. Of note, this is a draft discharge summary and information in this discharge summary should be interpreted with caution until the dictation is signed. [id number]/[facility] #: [id number] MTDD
[2017-08-17] MEDS: Acetaminophen TAB* 325 MG PO SCH (12:17)
[2017-08-17] MEDS: DULoxetine DR CAP* 60 MG CAP.DR PO SCH (12:18)
[2017-08-17] MEDS: Finasteride TAB* 5 MG PO SCH (12:18)
[2017-08-17] MEDS ORDERED: Cephalexin CAP* 500 MG PO SCH (14:00)
== END 2017-08-17 12:10 | DRG 511 ==
LOC: ED 12:25 → MED 16:48 → OBSVTOIN 08-15 14:15 → MED 08-15 14:55
PROVIDERS: ADMIT Internal Medicine Geriatric Medicine; ATTEND Internal Medicine Geriatric Medicine
PROC: 0PSK04Z Reposition Right Ulna with Internal Fixation Device, Open Approach (ICD-10-PCS; principal; 2017-08-15 11:30)
DX: S52.021A Displaced fracture of olecranon process without intraarticular extension of right ulna, initial encounter for closed fracture (principal); F05 Delirium due to known physiological condition; E23.0 Hypopituitarism; D50.0 Iron deficiency anemia secondary to blood loss (chronic); I44.7 Left bundle-branch block, unspecified; W18.39XA Other fall on same level, initial encounter; Y92.039 Unspecified place in apartment as the place of occurrence of the external cause; M54.5 Low back pain; F32.9 Major depressive disorder, single episode, unspecified; K21.9 Gastro-esophageal reflux disease without esophagitis; I10 Essential (primary) hypertension; K25.9 Gastric ulcer, unspecified as acute or chronic, without hemorrhage or perforation; N40.0 Benign prostatic hyperplasia without lower urinary tract symptoms; Z86.73 Personal history of transient ischemic attack (TIA), and cerebral infarction without residual deficits; Z85.72 Personal history of non-Hodgkin lymphomas; Z79.1 Long term (current) use of non-steroidal anti-inflammatories (NSAID); Z79.890 Hormone replacement therapy; Z79.899 Other long term (current) drug therapy; Z87.891 Personal history of nicotine dependence
CPT/HCPCS: 36415; 70450; 71045; 76000; 80053; 81003; 85025; 85610; 85730; 93005; 99212; 99283; A9270-GY; C1713; C1776; G0378; G0463; J0690; J1720; J2704; J3010; J3490

== ENCOUNTER 2017-09-27 05:39 | Emergency (ER) | payer MEDICARE, OTHER ==
--- OUTSIDE RECORDS SUMMARY | 2017-09-27 07:21 | XMS REPORT ---
:1940 External Reference #:[id number] Author Organization [facility] Address [address] [address] Phone [phone] Care Team Providers Name Role Phone Ankita Lopez MD Primary Care Physician Unavailable Payers Type Date Identification Numbers Payment Provider Subscriber Medicare Primary Policy Number: [id number] Medicare Gregor Ashshubhamoft PayID: [id number] [address] [place] [address] Commercial Policy Number: [id number] [facility] Gregor Ashshubhamoft Group Number: [id number] [address] PayID: [id number] [place] [address] Commercial Policy Number: [id number] [facility] Gregor Ashshubhamoft PayID: [id number] [address] [place] [address] Problems Date Description Provider Status Onset: 07/07/2013 Contusion of lower leg CHAS Grier Active Onset: 12/23/2014 Unsteady gait Soni Sanders M.D. Active Onset: 12/23/2014 Cerebrovascular disease Soni Sanders M.D. Active Family History Date Family Member(s) Problem(s) Comments General Cancer Father due to Leukemia () Mother due to Natural Causes () Mother due to hemochromatosis () - both sons Social History Type Date Description Comments Marital Status Lives With Spouse Occupation Retired Physicist at [employer] Cigarette Use Never Smoked Cigarettes ETOH Use Currently consumes alcohol 1/2 drink once daily Smoking Patient is a former smoker smoked few months - pipe Daily Caffeine Consumes on average 1 cup of regular coffee per day Daily Caffeine Consumes on average 1 cup of hot tea per day Exercise Type/Frequency Exercises sporadically walking Allergies, Adverse Reactions, Alerts Date Description Reaction Status Severity Comments 12/22/2014 Effexor active Possible 12/22/2014 Bupropion "Odd looking spots" active Moderate 12/22/2014 Amitriptyline GI Distress active Moderate to Severe 04/03/2013 NKDA inactive Medications Medication Date Status Form Strength Qnty SIG Indications Ordering Provider Simvastatin 12/23/ Active Tablets 10mg 60tab 1 tablet I67.9 Soni Gardner 2014 s daily Caio Sanders Tramadol HCL 12/22/ Active Tablets 50mg 40tab 2 tablets Soni Gardner 2014 s every 4-6 wily Sanders as M.DDeisy needed Levothyroxine / Active Tablets 100mcg 1 by mouth Unknown Sodium 0000 every day Metrogel / Active Gel 1% apply once Unknown 0000 daily as directed for rosacea Vitamin D3 / Active Capsules 1000Unit 1 by mouth Unknown 0000 every day Vitamin B-12 / Active Tablets 1 by mouth Unknown 0000 every day Acetaminophen PM / Active Tablets 500-25mg take 1 to 2 Unknown Extra Strength 0000 tablets by mouth every evening as needed for overactive bladder Pantoprazole / Active Tablets DR 40mg 1 by mouth Unknown Sodium 0000 every day Lisinopril 0000/ Active Tablets 2.5mg 1 by mouth Unknown 0000 every day Carvedilol 00/ Active Tablets 3.125mg daily Unknown 0000 Hydrocortisone / Active Tablets 5mg 3 every Unknown 0000 morning, 1 every afternoon and 1 every evening Probiotic // Active Capsules 1 by mouth Unknown 0000 every day Sertraline HCL 00/ Active Tablets 50mg 1 by mouth Unknown 0000 every day Sleep Optimizer / Active daily Unknown 0000 Modafinil 09/16/ Hx Tablets 100mg 3tabs one po qday Fabiana 2012 Violetta Finch 11/21/ atsrufus, 2015 N.P. Keflex 01/07/ Hx Capsules 500mg 21cap 1 po bid Juan Granado 12/21/ Caio 2015 Delatestryl 00/00/ Hx Solution 200mg/ml 0.5mL Im q Unknown 0000 - 2 weeks 2014 Modafinil /00/ Hx Tablets 200mg 1 by mouth Unknown 0000 - every day 2014 Cortef /00/ Hx Tablets 10mg 1+1/2 tabs Unknown 0000 - po qam, 12 06/23/ tab qnoon, 2014 1/2 tab qpm Ambien CR 00/ Hx Tablets ER 6.25mg 1/4 tab po Unknown 0000 - every night 04/14/ at bedtime 2014 as needed Lexapro 00/00/ Hx Tablets 10mg 1 by mouth Unknown 0000 - every day 2014 Tylenol /00/ Hx Tablets 325mg 1 tab po Unknown 0000 - qid as 2014 Triamcinolone / Hx Cream 0.1% apply thin Unknown Acetonide 0000 - film twice 06/23/ daily to 2014 affected area prn Simethicone / Hx Strip PO pc Unknown 0000 - 2014 Tylenol With / Hx Tablets 300-30mg 1 tab by Unknown Codeine #3 0000 - mouth every 06/23/ 4 to 6 2015 hours as needed Elmiron /00/ Hx Capsules 100mg 1 po qd Unknown 0000 - 2014 Medications Administered in Office Medication Date Status Form Strength Qnty SIG Indications Ordering Provider Inj, Administered Injection Mauri Esquivel Regadenoson, 015 Walter, 0.1 MG FACC Technetium TC Administered Injection Mauri S. 99M 015 Walter, DO Tetrofosmin, FACC Per Unit Dose Up To 40 Millicuries Immunizations CPT Code Status Date Vaccine Lot # [id number] Given 08/05/2009 Influenza Virus Vaccine, Pandemic Formulation Vital Signs Date Vital Result Comment 08/28/2017 Height 70 inches 5'10" Weight 184.00 lb BP Systolic 122 mmHg BP Diastolic 82 mmHg Respiratory Rate 20 /min Body Temperature 98.1 F Pain Level 4 BMI (Body Mass Index) 26.4 kg/m2 07/08/2015 Height 70 inches 5'10" Weight 184.00 lb no shoes Heart Rate 78 /min BP Systolic Sitting 126 mmHg Ra, reg cuff BP Diastolic Sitting 82 mmHg Ra, reg cuff BP Systolic Standing 120 mmHg Ra BP Diastolic Standing 84 mmHg Ra Respiratory Rate 16 /min BMI (Body Mass Index) 26.4 kg/m2 Ejection Fraction 50-55% 06/23/15 06/24/2015 Height 70 inches 5'10" Weight 188.00 lb Heart Rate 72 /min BP Systolic Sitting 118 mmHg BP Diastolic Sitting 68 mmHg Respiratory Rate 16 /min BMI (Body Mass Index) 27.0 kg/m2 04/15/2015 Height 70 inches 5'10" Weight 194.00 lb with shoes Heart Rate 84 /min BP Systolic Sitting 136 mmHg LA, reg cuff BP Diastolic Sitting 84 mmHg LA, reg cuff BP Systolic Standing 130 mmHg LA BP Diastolic Standing 86 mmHg LA Respiratory Rate 14 /min BMI (Body Mass Index) 27.8 kg/m2 Ejection Fraction 40-45% 04/07/15 03/31/2015 Height 70 inches 5'10" Weight 192.00 lb Heart Rate 88 /min BP Systolic 138 mmHg Ra reg cuff BP Diastolic 88 mmHg Ra reg cuff BP Systolic Sitting 142 mmHg LA reg cuff BP Diastolic Sitting 92 mmHg LA reg cuff BP Systolic Standing 128 mmHg LA BP Diastolic Standing 80 mmHg LA Respiratory Rate 16 /min BMI (Body Mass Index) 27.5 kg/m2 Ejection Fraction 60-65% 09/26/05 12/23/2014 Height 70 inches 5'10" Weight 194.00 lb Heart Rate 80 /min BP Systolic Sitting 142 mmHg BP Diastolic Sitting 86 mmHg Respiratory Rate 16 /min BMI (Body Mass Index) 27.8 kg/m2 04/17/2013 Heart Rate 72 /min BP Systolic 134 mmHg BP Diastolic 78 mmHg Respiratory Rate 20 /min Body Temperature 97.2 F 04/03/2013 Height 70 inches 5'10" Weight 209.00 lb Heart Rate 72 /min BP Systolic 134 mmHg BP Diastolic 74 mmHg Respiratory Rate 20 /min Body Temperature 96.5 F BMI (Body Mass Index) 30.0 kg/m2 Results Test Date Test Result H/L Range Note Laboratory test finding 03/31/2015 Troponin-I (TnI) 0.02 ng/mL <0.03 1, 2 CBC Auto Diff 01/11/2015 White Blood Count 7.5 10^3/uL 4.8-10.8 Red Blood Count 4.05 10^6/uL 4.0-5.4 Hemoglobin 12.7 g/dL Low 14.0-18.0 Hematocrit 40 % Low 42-52 Mean Corpuscular Volume 98 fL High 80-94 Mean Corpuscular Hemoglobin 31 pg 27-31 Mean Corpuscular HGB Conc 32 g/dL 31-36 Red Cell Distribution Width 18 % High 10.5-15 Platelet Count 228 10^3/uL 150-450 Mean Platelet Volume 9 um3 7.4-10.4 Abs Neutrophils 4.7 10^3/uL 1.5-7.7 Abs Lymphocytes 2.1 10^3/uL 1.0-4.8 Abs Monocytes 0.5 10^3/uL 0-0.8 Abs Eosinophils 0.1 10^3/uL 0-0.6 Abs Basophils 0.1 10^3/uL 0-0.2 Abs Nucleated RBC 0.01 10^3/uL Granulocyte % 61.8 % 38-83 Lymphocyte % 28.5 % 25-47 Monocyte % 6.9 % 1-9 Eosinophil % 1.9 % 0-6 Basophil % 0.9 % 0-2 Nucleated Red Blood Cells % 0.1 Laboratory test finding 01/11/2015 Folic Acid (Folate) > 20.00 ng/mL & gt;3.99 Vitamin B12 710 pg/mL 180-914 3 Methylmalonic Acid Mma 0.38 nmol/mL <=0.40 4 H Pylori Iga 01/11/2015 Helicobacter pylori IgA Ab Negative Negative H pylori IgA Ab Index 5.48 5 H.Pylori Igg AB 01/11/2015 Helicobacter pylori IgG Ab Negative Negative H pylori IgG AB Index 3.52 6 H.Pylori Igm AB 01/11/2015 Helicobacter pylori IgM Ab Negative Negative H pylori IgM AB Index 15.[address] WALTER WITH RESULTS GAYE REGARDLESS ON CELL # [phone]. [id number] Reference Range and Interpretation: TnI (ng/mL) Interpretation Less Than 0.03 ng/mL Not supportive of diagnosis of PR 0.03 - 0.50 ng/mL Indeterminate: suggest serial studies if clinically indicated. Greater than 0.5 ng/mL Consistent with diagnosis of PR 3 Normal Range 180 to 914 Indeterminate Range 145 to 180 Deficient Range <145 4 Test Performed by: [address] [address] [employer] Metal Worker: Mirza Ann II, M.D., Ph.D. 5 Results with Index Values of <18.00 are negative. Test Performed by: [facility] - [address] [address] [employer] Worker: Mirza Ann II, M.D., Ph.D. 6 Results with Index Values of <8.95 are negative. Test Performed by: [facility] - [address] [address] [employer] Worker: Mirza Ann II, M.D., Ph.D. 7 Results with Index Values of <36.00 are negative. Test Performed by: [address] [address] [employer] Worker: Mirza Ann II, M.D., Ph.D. Procedures Date CPT Code Description Status 08/15/2017 90617 FX Ulna Proximal (Olecranon) Open TX W/Wo Fixation Completed 08/15/2017 29680 FX Ulna Proximal (Olecranon) Open TX W/Wo Fixation Completed 08/20/2015 34374 Laparoscopy Cholecystectomy Completed 06/23/2015 72077 ECHO Transthoracic, Real-Time 2D With Doppler And Color Completed Flow 04/07/2015 20920 ECHO Transthoracic, Real-Time 2D With Doppler And Color Completed Flow 04/06/2015 16062 Stress Test Completed 04/06/2015 87045 Myocardial Perfusion Imaging Tomographic (Spect) Completed Multiple Studies 03/31/2015 96516 EKG Tracing & Interpretation Completed 12/26/2011 51536 I&D Leg Or Ankle;Deep Abscess Or Hematoma Completed 12/26/2011 03151 I&D Leg Or Ankle;Deep Abscess Or Hematoma Completed Encounters Type Date Location Provider CPT E/M Dx Office Visit 07/08/2015 [facility] [place] [address] I44.7 8:40a [facility] FAC I10 E23.0 I11.9 Office Visit 06/24/2015 11:45a [facility] Soni Sanders, 20204 I67.9 [facility] [place] R26.81 Office Visit 04/15/2015 2:00p [facility] [place] [address] I44.7 [facility] FAC R53.83 I10 I42.9 Office Visit 03/31/2015 1:00p [facility] [place] [address] 426.3 [facility] FACC 780.79 272.4 786.09 Office Visit 12/23/2014 9:30a [facility] Soni JimenezDeisy Sanders, 84745 781.2 M.Art 437.9 Office Visit 04/17/2013 3:20p [facility] Nursing Fabiana Porter, 86908 529.8 Home N.P. Office Visit 04/03/2013 4:47p [facility] Fabiana Porter, 45683 789.03 Home N.P. 527.7 Office Visit 12/22/2011 10:00a [facility] [place], 408[address] 682.6 C.MBinu [place] Office Visit 12/06/2009 8:15a [facility] [place] [address] 844.9 C.M.ADeisy Office Visit 11/17/2009 10:30a [facility] [place] [address] 844.9 C.M.ADeisy Plan of Care Future Appointment(s):09/27/2017 10:00 am - John Aguirre MD at [facility]
--- NOTE | 2017-09-27 08:04 | RAD ---
HISTORY: Fall, head trauma COMPARISONS: September 07, 2017, MRI of the head dated May 29, 2003 TECHNIQUE: Multiple contiguous axial CT scans were obtained of the head without intravenous contrast. FINDINGS: HEMORRHAGE/INFARCT: There is no hemorrhage or acute infarct. MASSES/SHIFT: There is no mass or shift. EXTRA-AXIAL SPACES: There is asymmetry of the right cavernous sinus which reflects an arachnoid cyst that can be identified on the MRI of May 29, 2003 stable accounting for differences in technique. SULCI AND VENTRICLES: The sulci and ventricles are normal in size and position for the patient's stated age. CEREBRUM: There is hypoattenuation of the periventricular and subcortical white matter. BRAINSTEM: There are no focal parenchymal abnormalities. CEREBELLUM: There are no focal parenchymal abnormalities. VESSELS: There is calcification of the cavernous segments of the internal carotid arteries bilaterally and of the distal vertebral arteries bilaterally. PARANASAL SINUSES: The paranasal sinuses are clear. ORBITS: The orbits are unremarkable. BONES AND SOFT TISSUE: No bone or soft tissue abnormalities are noted. OTHER: None IMPRESSION: 1. NO ACUTE INTRACRANIAL PATHOLOGY. 2. 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
[2017-09-27 08:06] VITALS: BP 146/94
--- NOTE | 2017-09-27 20:08 | ED ---
Sacha Luciano Stephanie, scribed for Marino Galan MD on 09/27/17 at 0613 . Complex/Multi-Sys Presentation - HPI Summary HPI Summary: The pt is a 77 y/o M BIBA to the ED with c/o fall that occurred at 05:15 today. The pt states he is unaware of how he fell. The pt is unsure if he tripped or lost his balance. The pt denies dizziness and LOC. The pt states that recently he has had a few falls. He states he uses canes to walk. The pt states that after he fell he was able to stand up again. The pt reports head trauma. - History Of Current Complaint Chief Complaint: EDHeadInjury Time Seen by Provider: 09/27/17 05:52 Hx Obtained From: Patient Onset/Duration: Lasting Hours - 1, Still Present Severity Currently: None Associated Signs And Symptoms: Positive: Other - Negative: LOC. 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 - takes synthroid, Other Endocrine/Hematological Disorders - pituatry adenoma removed: 2ndry adrenal insufficiency, thyroid, testosteron Denies: Hx Diabetes Cardiovascular History: Reports: Hx Hypertension, Other Cardiovascular Problems/ Disorders - LBBB - takes carvedilol Denies: Hx Pacemaker/ICD Respiratory History: Reports: Hx Pneumonia - 2003 GI History: Reports: Hx Gall Bladder Disease - had chuck'y, Hx Gastroesophageal Reflux Disease - pantoprazole 40mg, Hx Hiatal Hernia, Other GI Disorders - CHRONIC CHOLECYSTITIS History: Reports: Hx Benign Prostatic Hyperplasia, Hx Renal Disease - abnormal gfr, Other Problems/Disorders - prominent vessels in prostate - on avodart, toviaz Denies: Hx Dialysis Musculoskeletal History: Reports: Hx Back Problems - LBP - nortriptyline, lyrica - follows w/ pain management Sensory History: Reports: Hx Cataracts, Hx Contacts or Glasses, Hx Hearing Aid, Hx Hearing Problem Opthamlomology History: Reports: Hx Cataracts, Hx Contacts or Glasses Neurological History: Reports: Other Neuro Impairments/Disorders - poor memory, per patient. 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 REMOVAL BENIGN MASSES L AND R [facility]. 2005 CARDIAC CATH [facility] - NO STENTING. 2011 L [facility] - R/T INFECTION. [id number]. 08/2015 GALLBLADDER Hx Anesthesia Reactions: No Infectious Disease History: No Infectious Disease History: Denies: Traveled Outside the [place] in Last 30 Days - Family History Known Family History: Positive: None - Social History Occupation: Retired Lives: Assisted Living Alcohol Use: Daily Alcohol Amount: SMALL AMT. WINE DAILY Hx Substance Use: No Substance Use Type: Reports: None Hx Tobacco Use: Yes - not currently Smoking Status (MU): Former Smoker Amount Used/How Often: 4-5 CIGS DAILY Length of Time of Smoking/Using Tobacco: 3 YEARS Have You Smoked in the Last Year: No Review of Systems Negative: Fever Neurological: Other - Negative: dizziness Psychological: Other - Negative: LOC All Other Systems Reviewed And Are Negative: Yes Physical Exam - Summary Physical Exam Summary: VITAL SIGNS: Reviewed. GENERAL: Patient is a well-developed and nourished MALE who is lying comfortable in the stretcher. Patient is not in any acute respiratory distress. HEAD AND FACE: No signs of trauma. No ecchymosis, hematomas or skull depressions. No sinus tenderness. red area at the occipital region measured about 3 cm in diameter, seems like a rug rash. EYES: PERRLA, EOMI x 2, No injected conjunctiva, no nystagmus. EARS: Hearing grossly intact. Ear canals and tympanic membranes are within normal limits. MOUTH: Oropharynx within normal limits. NECK: Supple, trachea is midline, no adenopathy, no JVD, no carotid bruit, no c- spine tenderness, neck with full ROM. CHEST: Symmetric, no tenderness at palpation LUNGS: Clear to auscultation bilaterally. No wheezing or crackles. CVS: Regular rate and rhythm, S1 and S2 present, no murmurs or gallops appreciated. ABDOMEN: Soft, non-tender. No signs of distention. No rebound no guarding, and no masses palpated. Bowel sounds are normal. EXTREMITIES: FROM in all major joints, no edema, no cyanosis or clubbing. Pt Is wearing a sling to his RUE due to surgery a few months ago. NEURO: Alert and oriented x 3. No acute neurological deficits. Speech is normal and follows commands. SKIN: Dry and warm Triage Information Reviewed: Yes Vital Signs On Initial Exam: Initial Vitals Temp Pulse Resp BP Pulse Ox 97.2 F 91 18 152/102 94 09/27/17 05:44 09/27/17 05:44 09/27/17 05:44 09/27/17 05:44 09/27/17 05:44 Vital Signs Reviewed: Yes Diagnostics - Vital Signs Vital Signs Temp Pulse Resp BP Pulse Ox 09/27/17 05:44 97.2 F 91 18 152/102 94 - Laboratory Lab Statement: Any lab studies that have been ordered have been reviewed, and results considered in the medical decision making process. Complex Multi-Symp Course/Dx - Diagnoses Provider Diagnoses: Head injury, Scalp contusion Discharge - Discharge Plan Condition: Stable Disposition: HOME Patient Education Materials: Head Injury (ED), Scalp Contusion in Adults (ED) Referrals: Ankita Lopez MD [Primary Care Provider] - 3 Days Additional Instructions: RETURN TO EMERGENCY DEPARTMENT FOR ANY NEW OR WORSENING SYMPTOMS The documentation as recorded by the Sacha iniguez Stephanie accurately reflects the service I personally performed and the decisions made by , Marino Galan MD.
== END 2017-09-27 08:03 | disposition home or self-care (01) ==
LOC: ED 05:39
DX: S00.03XA Contusion of scalp, initial encounter (principal); W19.XXXA Unspecified fall, initial encounter; Y92.9 Unspecified place or not applicable; I67.2 Cerebral atherosclerosis; I65.23 Occlusion and stenosis of bilateral carotid arteries; Z91.81 History of falling; Z87.891 Personal history of nicotine dependence
CPT/HCPCS: 70450; 99282

== ENCOUNTER 2018-01-18 14:54 | Emergency (ER) | payer MEDICARE, OTHER ==
--- OUTSIDE RECORDS SUMMARY | 2018-01-18 15:18 | XMS REPORT ---
:1940 External Reference #:[id number] Author Organization [facility] Address [address] [id number] Phone [phone] Care Team Providers Name Role Phone Ankita Lopez M.D. Care Team Information Sheet Mill Supervisor Unavailable Ankita Lopez M.D. Primary Care Physician Unavailable Payers Type Date Identification Numbers Payment Provider Subscriber Medicare Primary Policy Number: [id number] [place] [employer] Gregor Guzmán SRVS PayID: [id number] [address] [place] [address] Medigap Part B Policy Number: [id number] [facility] Insurance Applimation Gregor Guzmán PayID: [id number] [address] [place] [address] Problems Date Description Provider Status Onset: 01/14/2018 Bleeding from nose Hernan De Los Santos MD Active Onset: 01/14/2018 Deviated nasal septum Hernan De Los Santos MD Active Onset: 11/22/2015 Unspecified sensorineural hearing loss Hernan De Los Santos MD Active Onset: 11/22/2015 Impacted cerumen Hernan De Los Santos MD Active Family History Date Family Member(s) Problem(s) Comments General Cancer General Migraine General Thyroid Disease Social History Type Date Description Comments Occupation Physicist Cigarette Use Former Cigarette Smoker Packs Daily 1/2 for 3 years Cigars Never Smoked Cigars Pipe Never Smoked A Pipe Smokeless Tobacco Never Used Smokeless Tobacco ETOH Use Current Alcohol Use Occasionally Allergies, Adverse Reactions, Alerts Date Description Reaction Status Severity Comments 03/11/2009 NKDA active Medications Medication Date Status Form Strength Qnty SIG Indications Ordering Provider Hydrocortisone 00// Active Tablets 20mg as Jessica, 0000 directed Ankita [place] Pantoprazole 00/00/ Active Tablets DR 20mg 1 by Jessica, Sodium 0000 mouth Ankita [place] every day Carvedilol / Active Tablets 3.125mg 1 by Lopez, 0000 mouth Ankita [place] twice a day Dutasteride / Active Capsules 0.5mg daily Unknown 0000 Metrogel / Active Gel 1% QHS to Unknown 0000 nose Levothyroxine / Active Tablets 100mcg daily Unknown Sodium 0000 Mylanta / Active Suspension 200-200-2 as Unknown 0000 0mg/5ML directed Tylenol Extra / Active Tablets 500mg as needed Unknown Strength 0000 Ibuprofen / Active Tablets 400mg prn Unknown 0000 Guaifenesin / Active Solution 100mg/5ML as Unknown 0000 directed Testosterone / Active Solution 200mg/ml 0.5ML Qow Unknown Enanthate 0000 Lyrica / Active Capsules 50mg QHS Unknown 0000 Liothyronine / Active Tablets 5mcg daily Unknown Sodium 0000 Vitamin D3 / Active Capsules 1000Unit 1 by Unknown 0000 mouth every day Vitamin B-12 ER 00/ Active Tablets ER 1000mcg take once Unknown 0000 daily Culturelle / Active Capsules 1 by Unknown 0000 mouth every day Hydrocortisone // Hx Unknown 2015 Levoxyl / Hx Unknown 2015 Lexapro / Hx Unknown 2015 Vitamin D // Hx Unknown 2015 Vitamin B / Hx Unknown Complex 2015 Flomax / Hx Caps ER 24HR 0.4mg Unknown 2015 Thyroxine / Hx As Lopez, 0000 - directed Ankita [place] 2017 Escitalopram / Hx Tablets 10mg 1 by Unknown Oxalate 0000 - mouth 01/14/ every day 2018 Immunizations CPT Code Status Date Vaccine Lot # [id number] Given Unknown Pneumococcal Vaccine 2Yrs Or Older 67973 Given Unknown Influenza Virus Vaccine, 3 Years Of Age And Above, Intramuscular Vital Signs Date Vital Result Comment 01/14/2018 Weight 200.00 lb Weight in kg's 90.720 Height 71 inches 5'11" Height in cm's 180.3 cm BMI (Body Mass Index) 27.9 kg/m2 11/22/2015 BP Systolic 115 mmHg BP Diastolic 78 mmHg Heart Rate 78 /min Respiratory Rate 16 /min 03/11/2009 BP Systolic 118 mmHg BP Diastolic 75 mmHg Heart Rate 71 /min Respiratory Rate 16 /min Results Description No Information Procedures Date CPT Code Description Status 01/14/2018 89644 Removal Wax Impaction Completed 01/14/2018 93006 Control Nasal Hemorrhage (Extensive Cautery/Packing) Completed Any Method 06/29/2016 84865 Removal Wax Impaction Completed 11/22/2015 97380 Removal Wax Impaction Completed 03/19/2009 73679 Binocular Microscopy Completed 03/17/2009 92242 Binocular Microscopy Completed 03/15/2009 79688 Binocular Microscopy Completed 03/11/2009 16813 Removal Wax Impaction Completed Encounters Type Date Location Provider CPT E/M Dx Office Visit 01/14/2018 9:15a [place] 07/23/07 [place] [address] H61.23 J34.2 R04.0 Office Visit 11/22/2015 10:30a [place],After 07/23/07 [place] [address] H61.23 H90.5 Office Visit 03/24/2009 10:00a [place],After 07/23/07 [place] [address] 380.10 Office Visit 03/19/2009 9:30a [place],After 07/23/07 [place] [address] 380.10 Office Visit 03/17/2009 10:30a [place],After 07/23/07 [place] [address] 380.10 Office Visit 03/15/2009 9:45a [place],After 07/23/07 [place] [address] 380.10 Plan of Care 01/14/2018 - Hernan De Los Santos MDH61.23 Impacted cerumen, bilateralComments:The patient's cerumen impaction was cleaned without difficulty.J34.2 Deviated nasal kgncjcR35.0 EpistaxisComments:The patient was treated with silver nitrate cautery. We discussed that a scab will form and may bleed when it comes off in a week. The patient was instructed to let it mature and fall off on its own. I have given the patient our epistaxis instruction sheet, which includes information on how to carefor the nose at this time, and if there is further bleeding.
--- OUTSIDE RECORDS SUMMARY | 2018-01-18 15:18 | XMS REPORT ---
:1940 External Reference #:[id number] Author Organization [facility] [place] Address [address] [address] Phone [phone] Care Team Providers Name Role Phone Ankita Lopez MD Primary Care Physician Unavailable Payers Type Date Identification Numbers Payment Provider Subscriber Medicare Primary Policy Number: [id number] Medicare Gregor Ashcroft PayID: [id number] [address] [place] [address] Commercial Policy Number: [id number] [facility] Gregor Ashcroft Group Number: [id number] [address] PayID: [id number] [place] [address] Commercial Policy Number: [id number] [facility] Gregor Ashcroft PayID: [id number] [address] [place] [address] Problems Date Description Provider Status Onset: 07/07/2013 Contusion of lower leg CHAS Grier Active Onset: 12/23/2014 Unsteady gait Soni Sanders M.D. Active Onset: 12/23/2014 Cerebrovascular disease Soni Sanders M.D. Active Onset: 08/28/2017 Closed fracture of olecranon process John Aguirre MD Active of ulna Onset: 10/09/2017 Contusion of hand John Aguirre MD Active Onset: 10/09/2017 Fall John Aguirre MD Active Onset: 12/21/2017 Hypersomnia Nils Panchal M.D. Active Onset: 12/21/2017 Chronic fatigue syndrome Nils Panchal M.D. Active Onset: 12/21/2017 Orthostatic hypotension Nils Panchal M.D. Active Onset: 12/21/2017 Syncope and collapse Nils Panchal M.D. Active Onset: 12/21/2017 Amnesia Nils Panchla M.D. Active Family History Date Family Member(s) Problem(s) Comments General Cancer General Stroke General Hypertension Father due to Leukemia () Mother due to Natural Causes () Mother due to hemochromatosis () - both sons Children 2 Siblings 6 Three Brothers . Three Sisters alive and healthy Social History Type Date Description Comments Marital Status Lives With Adult family home sandi Occupation Retired Physicist at [employer] Cigarette Use Never Smoked Cigarettes ETOH Use Denies alcohol use Smoking Patient is a former smoker smoked few months - pipe Daily Caffeine Consumes on average 1 cup of regular coffee per day Daily Caffeine Consumes on average 1 cup of hot tea per day Daily Caffeine consumes chocolate frequently Exercise Type/Frequency Exercises sporadically walking Exercise Type/Frequency pt 3x a week Allergies, Adverse Reactions, Alerts Date Description Reaction Status Severity Comments 12/22/2014 Effexor active Possible 12/22/2014 Bupropion "Odd looking spots" active Moderate 12/22/2014 Amitriptyline GI Distress active Moderate to Severe 04/03/2013 NKDA inactive Medications Medication Date Status Form Strength Qnty SIG Indications Ordering Provider Levothyroxine Active Tablets 100mcg 1 by mouth Unknown Sodium /0000 every day Metrogel Active Gel 1% apply once Unknown /0000 daily as directed for rosacea Vitamin D3 Active Capsules 1000Unit 1 by mouth Unknown /0000 every day Acetaminophen Active Tablets 500mg 2 by mouth Unknown /0000 4-6 hpurs as needed. Pantoprazole Active Tablets DR 40mg 1 by mouth Unknown Sodium /0000 every day Carvedilol Active Tablets 3.125mg one by Unknown /0000 mouth twice daily Multi For Him 00 Active Tablets daily Unknown 50+ /0000 Mylanta Active Suspension 200-200-2 prn Unknown /0000 0mg/5ML Ibuprofen 200 Active Tablets 200mg 400-600mg Unknown /0000 every 6 hours as needed for pain. Hydrocortisone 00 Active Tablets 10mg Every Unknown /0000 night, 20MG every morning Guaifenesin Active Liquid 100mg/5ML 5 Unknown /0000 milliliters by mouth every 4 hours as needed for cough Testosterone Active Solution 200mg/ml inject 1 Unknown Enanthate /0000 milliliter intramuscul shemar every 2 weeks -- maximum dose 1 milliliter (200mg) every 2 weeks Duloxetine HCL Active Caps DR Part 30mg 2 by mouth Unknown /0000 every day Lyrica Active Capsules 50mg 1 by mouth Unknown /0000 every evening Dutasteride Active Capsules 0.5mg one tab Unknown /0000 once daily Dulcolax Active Suppository 10mg one Unknown suppository by way of rectum as needed daily for constipatio n Enema Active Enema 1 Unknown Disposable /0000 application rectally as needed Ibu Active Tablets 400mg every 4 Unknown /0000 hours as needed Liothyronine Active Tablets 5mcg 1 by mouth Unknown Sodium /0000 every day Centrum Ultra Active Tablets one daily Unknown Mens /0000 Vitamin B12 Active Tablets ER 1000mcg once daily Unknown /0000 Culturelle Active Capsules once daily Unknown Digestive /0000 Health Lyrica 10/15 Hx Capsules 100mg 30cap 1 cap by Izzy s mouth every [place], - day at [facility] INTERVENTIONIST 11/20 bedtime Simvastatin 12/23 Hx Tablets 10mg 60tab 1 tablet I67.9 Soni MDeisy s daily Violetta Sanders M.D. 10/25 Tramadol HCL 12/22 Hx Tablets 50mg 40tab 2 tablets Soni MDeisy s every 4-6 [place], - hours as M.D. 10/25 needed Modafinil 09/16 Hx Tablets 100mg 3tabs one po qday Fabiana Dm-Linnea - atson, 11/21 N.P. /2014 Keflex 01/07 Hx Capsules 500mg 21cap 1 po bid Violetta Daniels M.D. 12/21 Delatestryl Hx Solution 200mg/ml 0.5mL Im q Unknown / 2 weeks - 06/23 Modafinil 00 Hx Tablets 200mg 1 by mouth Unknown /0000 every day - 06/23 Cortef Hx Tablets 10mg 1+1/2 tabs Unknown /0000 po qam, 1/2 - tab qnoon, 06/23 1/2 tab q Ambien CR / Hx Tablets ER 6.25mg 1/4 tab po Unknown /0000 every night - at bedtime 04/14 as needed /2014 Lexapro Hx Tablets 10mg 1 by mouth Unknown /0000 every day - 04/14 Vitamin B-12 Hx Tablets 1 by mouth Unknown /0000 every day - 11/20 Tylenol Hx Tablets 325mg 1 tab po Unknown /0000 qid as - needed 06/23 Triamcinolone Hx Cream 0.1% apply thin Unknown Acetonide /0000 film twice - daily to 06/23 area prn Simethicone Hx Strip PO pc Unknown /0000 - 06/23 Tylenol With Hx Tablets 300-30mg 1 tab by Unknown Codeine #3 /0000 mouth every - 4 to 6 06/23 hours needed Elmiron 00 Hx Capsules 100mg 1 po qd Unknown /0000 - 04/14 Lisinopril Hx Tablets 5mg 1 by mouth Unknown /0000 every day - 12/05 Hydrocortisone 0000 Hx Tablets 10mg once daily Unknown /0000 - 11/20 Probiotic 00/ Hx Capsules 1 by mouth Unknown /0000 every day - 11/20 Sertraline HCL 00 Hx Tablets 50mg 1 by mouth Unknown /0000 every day - 10/25 Sleep Optimizer 00/00 Hx daily Unknown /0000 - 10/25 Toviaz 0000 Hx Tablets ER 8mg 1 by mouth Unknown /0000 24HR every day - 11/19 Tylenol Extra Hx Tablets 500mg 2 by mouth Unknown Strength /0000 as needed - 12/20 Medications Administered in Office Medication Date Status Form Strength Qnty SIG Indications Ordering Provider Inj, Administered Injection Mauri Wilcox, 015 DO Josue 0.1 MG FACC Technetium TC Administered Injection Mauri Esquivel 99M 015 DO Josue Tetrofosmin, FACC Per Unit Dose Up To 40 Millicuries Immunizations CPT Code Status Date Vaccine Lot # [id number] Given 08/05/2009 Influenza Virus Vaccine, Pandemic Formulation Vital Signs Date Vital Result Comment 12/21/2017 Height 71 inches 5'11" Weight 190.00 lb Heart Rate 80 /min BP Systolic Sitting 118 mmHg BP Diastolic Sitting 80 mmHg Respiratory Rate 16 /min BMI (Body Mass Index) 26.5 kg/m2 12/06/2017 Height 71 inches 5'11" Weight 194.50 lb with shoes Heart Rate 76 /min BP Systolic Sitting 120 mmHg Lue reg cuff BP Diastolic Sitting 82 mmHg Lue reg cuff Respiratory Rate 16 /min BMI (Body Mass Index) 27.1 kg/m2 Ejection Fraction 50-55% date 06/23/15 ECHO 11/20/2017 Heart Rate 84 /min BP Systolic 122 mmHg BP Diastolic 82 mmHg Respiratory Rate 16 /min Body Temperature 96.8 F 10/26/2017 Height 70 inches 5'10" Weight 199.00 lb Heart Rate 80 /min BP Systolic Sitting 102 mmHg lue reg cuff BP Diastolic Sitting 58 mmHg lue reg cuff BP Systolic Standing 90 mmHg lue reg cuff BP Diastolic Standing 50 mmHg lue reg cuff Respiratory Rate 16 /min BMI (Body Mass Index) 28.6 kg/m2 Ejection Fraction 50-55% 06/23/2015 10/09/2017 Height 70 inches 5'10" Weight 184.00 lb Heart Rate 90 /min BP Systolic Sitting 108 mmHg BP Diastolic Sitting 70 mmHg Respiratory Rate 16 /min Pain Level 0 BMI (Body Mass Index) 26.4 kg/m2 09/28/2017 Height 70 inches 5'10" Weight 184.00 lb Respiratory Rate 18 /min Body Temperature 97.9 F Pain Level 0 BMI (Body Mass Index) 26.4 kg/m2 08/28/2017 Height 70 inches 5'10" Weight 184.00 [...] Test Result H/L Range Note Laboratory test 03/31/2015 Troponin-I (TnI) 0.02 ng/mL <0.03 1, 2 finding H.Pylori Igm AB 01/11/2015 Helicobacter pylori IgM Negative Negative Ab H pylori IgM AB Index 15.80 3 H.Pylori Igg AB 01/11/2015 Helicobacter pylori IgG Ab Negative Negative H pylori IgG AB Index 3.52 4 H Pylori Iga 01/11/2015 Helicobacter pylori IgA Ab Negative Negative H pylori IgA Ab Index 5.48 5 Laboratory test finding 01/11/2015 Folic Acid (Folate) > 20.00 ng/mL > 3.99 Vitamin B12 710 pg/mL 180-914 6 Methylmalonic Acid Mma 0.38 nmol/mL <=0.40 7 CBC Auto Diff 01/11/2015 White Blood Count [...] 0-2 Nucleated Red Blood Cells % 0.[address] SALAS WITH RESULTS GAYE REGARDLESS ON CELL # [phone]. [id number] 2 Reference Range and Interpretation: TnI (ng/mL) Interpretation Less Than 0.03 ng/mL Not supportive of diagnosis of OH 0.03 - 0.50 ng/mL Indeterminate: suggest serial studies if clinically indicated. Greater than 0.5 ng/mL Consistent with diagnosis of OH 3 Results with Index Values of <36.00 are negative. Test Performed by: [address] [address] City Wellness Coordinator: Mirza Ann II, M.D., Ph.D. 4 Results with Index Values of <8.95 are negative. Test Performed by: [address] [address] City Wellness Coordinator: Mirza Ann II, M.D., Ph.D. 5 Results with Index Values of <18.00 are negative. Test Performed by: [address] [address] [facility] Wellness Coordinator: Mirza Ann II, M.D., Ph.D. 6 Normal Range 180 to 914 Indeterminate Range 145 to 180 Deficient Range <145 7 Test Performed by: [place] [address] City Wellness Coordinator: Mirza Ann II, M.D., Ph.D. Procedures Date CPT Code Description Status 10/26/2017 42809 EKG Tracing & Interpretation Completed 10/17/2017 96673 Holter Monitor Review (24 hr)dr review & interp only Completed 09/07/2017 15914 EEG Recording Awake & Drowsy Completed 08/15/2017 45330 FX Ulna Proximal (Olecranon) Open TX W/Wo Fixation Completed 08/15/2017 40458 FX Ulna Proximal (Olecranon) Open TX W/Wo Fixation Completed 08/20/2015 03953 Laparoscopy Cholecystectomy Completed 06/23/2015 17802 ECHO Transthoracic, Real-Time 2D With Doppler And Color Completed Flow 04/07/2015 84122 ECHO Transthoracic, Real-Time 2D With Doppler And Color Completed Flow 04/06/2015 28329 Stress Test Completed 04/06/2015 23742 Myocardial Perfusion Imaging Tomographic (Spect) Completed Multiple Studies 03/31/2015 31193 EKG Tracing & Interpretation Completed 12/26/2011 25601 I&D Leg Or Ankle;Deep Abscess Or Hematoma Completed 12/26/2011 36667 I&D Leg Or Ankle;Deep Abscess Or Hematoma Completed Encounters Type Date Location Provider CPT E/M Dx Office Visit 12/21/2017 [place] Panchal M.D. 97352 R41.1 8:30a [facility] R26.81 R55 I95.1 I67.9 R53.82 G47.10 Office Visit 12/06/2017 11:20a [facility] [place] [address] I44.7 [facility] FAC I95.1 E23.0 Office Visit 11/20/2017 9:45a [facility] [place] [address] S52.021A C.M.A. S52.021D Office Visit 10/26/2017 2:20p [facility] [address] I95.1 [facility] FACC R55 I44.7 Office Visit 09/28/2017 2:00p [facility] [place] [address] S52.021A C.M.A. W19.xxxA S60.221A Office Visit 08/14/2017 8:15a [facility] [place] [address] S52.031A Of C.M.A. Office Visit 07/08/2015 8:40a [facility], [address] I44.7 [facility] DO FACC I10 E23.0 I11.9 Office Visit 06/24/2015 11:45a [facility] Soni Sanders, [address] I67.9 [facility] R26.81 Office Visit 04/15/2015 2:00p [facility] [place] [facility] [address] I44.7 [facility] FACC R53.83 I10 I42.9 Office Visit 03/31/2015 1:00p [facility] Alvin [facility], [address] 426.3 [facility] FACC 780.79 272.4 786.09 Office Visit 12/23/2014 9:30a [facility] Soni Sanders, [address] 781.2 M.DDeisy 437.9 Office Visit 04/17/2013 3:20p [facility] Fabiana Porter, [address] 529.8 Home N.P. Office Visit 04/03/2013 4:47p [facility] Fabiana Porter, 36167 789.03 Home N.P. 527.7 Office Visit 12/22/2011 10:00a [facility] [place], [address] 682.6 C.M.A. MDeisyDDeisy Office Visit 12/06/2009 8:15a [facility] [place] [address] 844.9 C.M.A. Office Visit 11/17/2009 10:30a [facility] [place] [address] 844.9 C.M.A. Plan of Care Future Appointment(s):02/22/2018 10:00 am - Nils Panchal M.D. at [facility]12/21/2017 - Nils Panchal M.D.R41.1 Anterograde amnesiaFollow up:Follow up in 6 cwlizI21.81 Unsteadiness on feetR55 Syncope and ylmzrastI90.1 Orthostatic zcbcewtwdbnX53.9 Cerebrovascular disease, unspecifiedNew Xrays:MRI Brain W/OMra Head W/OMra Neck W/WoR53.82 Chronic fatigue, unspecifiedReferral:Sabrina Griffin MD, Pulmonary YdlxwehxZ11.10 Hypersomnia, unspecifiedNew Orders:Sleep StudyReferral:Sabrina Griffin MD, Pulmonary Diseases
[2018-01-18] MEDS ORDERED: Lidocaine 4% TOPICAL* 50 ML TOP.SOLN TOPICAL ONE (15:46)
[2018-01-18] MEDS ORDERED: Phenylephrine 1% NASAL* 15 ML BOT RIGHT NARE ONE (15:46)
[2018-01-18] MEDS ORDERED: Silver Nitrate/Potassium Nitr* 1 EA STICK TOPICAL ONE (17:14)
[2018-01-18] MEDS ORDERED: Lidocaine 4% GEL* 10 GM TUBE TOPICAL ONE (19:00)
[2018-01-18] MEDS ORDERED: Amoxicillin PO (*) 250 MG CAP PO ONE (20:01)
[2018-01-18 20:47] VITALS: BP 149/90
--- NOTE | 2018-01-18 21:35 | ED ---
Derick Luciano Angela, scribed for Sahil Liz MD on 01/18/18 at 1545 . Throat Pain/Nasal Congestion - HPI Summary HPI Summary: This pt is a 77 y/o male presenting to [facility] for epistaxis today. Pt reports he had cauterization with packing done [address] De Los Santos, ENT. states pt was getting a head CT today and while pt was in the bathroom he began to have bleeding from his nose. CT was ordered by Dr. Panchal after he found abnormalities in MRI and MRA. Pt has not had anything to eat or drink since breakfast, per . Pt denies any anticoagulants. 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 - takes synthroid, Other Endocrine/Hematological Disorders - pituatry adenoma removed: 2ndry adrenal insufficiency, thyroid, testosteron Denies: Hx Diabetes Cardiovascular History: Reports: Hx Hypertension, Other Cardiovascular Problems/ Disorders - LBBB - takes carvedilol Denies: Hx Pacemaker/ICD Respiratory History: Reports: Hx Pneumonia - 2002, 2003 GI History: Reports: Hx Gall Bladder Disease - had chuck'y, Hx Gastroesophageal Reflux Disease - pantoprazole 40mg, Hx Hiatal Hernia, Other GI Disorders - CHRONIC CHOLECYSTITIS History: Reports: Hx Benign Prostatic Hyperplasia, Hx Renal Disease - abnormal gfr, Other Problems/Disorders - prominent vessels in prostate - on avodart, toviaz Denies: Hx Dialysis Musculoskeletal History: Reports: Hx Back Problems - LBP - nortriptyline, lyrica - follows w/ pain management Sensory History: Reports: Hx Cataracts, Hx Contacts or Glasses, Hx Hearing Aid, Hx Hearing Problem Opthamlomology History: Reports: Hx Cataracts, Hx Contacts or Glasses Neurological History: Reports: Other Neuro Impairments/Disorders - poor memory, per patient. 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 REMOVAL BENIGN MASSES L AND R [facility]. 2005 CARDIAC CATH [facility] - NO STENTING. 2011 L [facility] - R/T INFECTION. [id number]. 08/2015 GALLBLADDER Hx Anesthesia Reactions: No Infectious Disease History: No Infectious Disease History: Denies: Traveled Outside the [place] in Last 30 Days - Family History Family History: Father: leukemia. Brother: pancreatic CA - Social History Alcohol Use: Daily Alcohol Amount: SMALL AMT. WINE DAILY Hx Substance Use: No Substance Use Type: Reports: None Hx Tobacco Use: Yes - not currently Smoking Status (MU): Former Smoker Amount Used/How Often: 4-5 CIGS DAILY Length of Time of Smoking/Using Tobacco: 3 YEARS Have You Smoked in the Last Year: No Review of Systems Negative: Fever, Chills Positive: Epistaxis Genitourinary: Negative Musculoskeletal: Negative Skin: Negative Neurological: Negative All Other Systems Reviewed And Are Negative: Yes Physical Exam - Summary Physical Exam Summary: Appearance: The patient is well-nourished in no acute distress and in no acute pain. Skin: The skin is warm and dry and skin color reflects adequate perfusion. HEENT: The head is normocephalic and atraumatic. The pupils are equal and reactive. The conjunctivae are clear and without drainage. Nares are patent and without drainage. Mouth reveals moist mucous membranes and the throat is without erythema and exudate. The external ears are intact. The ear canals are patent and without drainage. The tympanic membranes are intact. Neck: the neck is supple with full range of motion and non-tender. There are no carotid bruits. There is no neck vein distension. Respiratory: Chest is non-tender. Lungs are clear to auscultation and breath sounds are symmetrical and equal. Cardiovascular: Heart is regular rate and rhythm. There is no murmur or rub auscultated. There is no peripheral edema and pulses are symmetrical and equal. Abdomen: The abdomen is soft and non-tender. There are normal bowel sounds heard in all four quadrants and there is no organomegaly palpated. Musculoskeletal: There is no back tenderness noted. Extremities are non-tender with full range of motion. There is good capillary refill. There is no peripheral edema or calf tenderness elicited. Neurological: Patient is alert and oriented to person, place and time. Psychiatric: The patient has an appropriate affect and does not exhibit any anxiety or depression. Triage Information Reviewed: Yes Vital Signs On Initial Exam: Initial Vitals Temp Pulse Resp BP Pulse Ox 98.8 F 91 18 151/101 98 01/18/18 14:57 01/18/18 14:57 01/18/18 14:57 01/18/18 14:57 01/18/18 14:57 Vital Signs Reviewed: Yes Diagnostics - Vital Signs Vital Signs Temp Pulse Resp BP Pulse Ox 01/18/18 14:57 98.8 F 91 18 151/101 98 - Laboratory Lab Statement: Any lab studies that have been ordered have been reviewed, and results considered in the medical decision making process. Re-Evaluation - Re-Evaluation First Eval Re-Evaluation Time: 17:51 Comment: Pt's nose is still bleeding Second Eval Re-Evaluation Time: 19:30 Comment: Rhinorocket placed by Dr. Liz. Third Eval Re-Evaluation Time: 20:30 Change: Improved Comment: Bleeding has stopped. He will be discharged home. EENT Course/Dx - Course Course Of Treatment: Mr Guzmán presented with active bleeding from the right side of his nose which started while he was getting a CTA he was cauterized 4 days ago for bleeding. He was in no distress with normal vitals when he presented and pressure was applied using a pressure device. He began to bleed immediately when removing the pressure device therefore causing was placed with 4% lidocaine and extra strength Roberto-Synephrine. This was placed and removed 3 times without controlling the bleeding. Cotton impregnated with transexamic acid was then placed with better control but not complete control of the bleeding. A Rhino Rocket impregnated with the lidocaine and Roberto-Synephrine was then placed with control of the bleeding. He was placed on amoxicillin and recommended follow-up with Dr. David hubbard on Sunday or Sunday - Diagnoses Provider Diagnoses: Anterior epistaxis Discharge - Sign-Out/Discharge Documenting (check all that apply): Discharge/Admit/Transfer - Discharge - Discharge Plan Condition: Stable Disposition: HOME Prescriptions: Amoxicillin PO (*) [Amoxicillin 500 MG CAP*] 500 mg PO Q12H #8 cap Patient Education Materials: Nosebleed (ED) Referrals: Ankita Lopez MD [Primary Care Provider] - Hernan De Los Santos MD [Medical Doctor] - 3 Days (On Sunday or Sunday.) Additional Instructions: Please follow up with Dr. De Los Santos, ENT, on Sunday or Sunday. RETURN TO THE ED FOR ANY WORSENING SYMPTOMS. - Billing Disposition and Condition Condition: STABLE Disposition: Home The documentation as recorded by the Derick iniguez Angela accurately reflects the service I personally performed and the decisions made by , Sahil Liz MD.
== END 2018-01-18 20:45 | disposition home or self-care (01) ==
LOC: ED 14:54
DX: R04.0 Epistaxis (principal); F32.9 Major depressive disorder, single episode, unspecified; K21.9 Gastro-esophageal reflux disease without esophagitis; N40.0 Benign prostatic hyperplasia without lower urinary tract symptoms; Z87.891 Personal history of nicotine dependence; I10 Essential (primary) hypertension; I44.7 Left bundle-branch block, unspecified; R42 Dizziness and giddiness
CPT/HCPCS: 30901; 99282; A9270-GY

== ENCOUNTER 2018-12-22 17:26 | Emergency (ER) | payer MEDICARE, OTHER ==
--- NOTE | 2018-12-22 17:52 | ED ---
Shortness of Breath - HPI Summary HPI Summary: This patient is an 78 year old M presenting to [facility] [place] accompanied by and son with a chief complaint of night sweats with SOB for the past few weeks worsening today. Son reports an elevated breathing rate today of 24 while resting. Son additionally reports diaphoresis and pedal edema. Denies cough and CP. PMHx of CHF - History of Current Complaint Chief Complaint: EDShortnessOfBreath Time Seen by Provider: 12/22/18 17:43 Hx Obtained From: Patient Onset/Duration: Lasting Days, Lasting Weeks Dyspnea At: Rest Associated Signs & Symptoms: Diaphoresis - Allergy/Home Medications Allergies/Adverse Reactions: Allergies Allergy/AdvReac Type Severity Reaction Status Date / Time No Known Allergies Allergy Verified 12/22/18 17:39 Home Medications: Home Medications Bupropion XL* [Wellbutrin XL *] 150 mg PO DAILY 12/22/18 [History Confirmed 09/10] Furosemide TAB* [Lasix TAB*] 20 mg PO EVERY OTHER DAY 12/22/18 [History Confirmed 12/22/18] Iron Polysaccharide Complex [Ferrex 150] 150 mg PO EVERY OTHER DAY 12/22/18 [ History Confirmed 12/22/18] Liothyronine TAB* [Cytomel TAB*] 5 mcg PO DAILY 12/22/18 [History Confirmed 09/10] Mirtazapine TAB* [Remeron TAB*] 15 mg PO DAILY 12/22/18 [History Confirmed 12/22] PMH/Surg Hx/FS Hx/Imm Hx Endocrine/Hematology History: Reports: 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 - takes synthroid, Other Endocrine/Hematological Disorders - pituatry adenoma removed: 2ndry adrenal insufficiency, thyroid, testosteron Denies: Hx Diabetes Cardiovascular History: Reports: Hx Congestive Heart Failure, Hx Hypertension, Other Cardiovascular Problems/Disorders - LBBB - takes carvedilol Denies: Hx Pacemaker/ICD Respiratory History: Reports: Hx Pneumonia - 2002, 2003 GI History: Reports: Hx Gall Bladder Disease - had chuck'y, Hx Gastroesophageal Reflux Disease - pantoprazole 40mg, Hx Hiatal Hernia, Other GI Disorders - CHRONIC CHOLECYSTITIS History: Reports: Hx Benign Prostatic Hyperplasia, Hx Renal Disease - abnormal gfr, Other Problems/Disorders - prominent vessels in prostate - on avodart, toviaz Denies: Hx Dialysis Musculoskeletal History: Reports: Hx Back Problems - LBP - nortriptyline, lyrica - follows w/ pain management Sensory History: Reports: Hx Cataracts, Hx Contacts or Glasses, Hx Hearing Aid, Hx Hearing Problem Opthamlomology History: Reports: Hx Cataracts, Hx Contacts or Glasses Neurological History: Reports: Other Neuro Impairments/Disorders - poor memory, per patient. 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 REMOVAL BENIGN MASSES L AND R [facility] [place] 2005 CARDIAC CATH [facility] - NO STENTING. 2011 L ANKLE [facility] - R/T INFECTION. [id number]. 08/2015 GALLBLADDER Hx Anesthesia Reactions: No Infectious Disease History: No Infectious Disease History: Denies: Traveled Outside the [place] in Last 30 Days - Family History Known Family History: Positive: Other Family History: Father: leukemia. Brother: pancreatic CA - Social History Alcohol Use: Daily Alcohol Amount: SMALL AMT. WINE DAILY Hx Substance Use: No Substance Use Type: Reports: None Hx Tobacco Use: Yes - not currently Smoking Status (MU): Former Smoker Amount Used/How Often: 4-5 CIGS DAILY Length of Time of Smoking/Using Tobacco: 3 YEARS Have You Smoked in the Last Year: No Review of Systems Positive: Skin Diaphoresis Negative: Chest Pain Positive: Shortness Of Breath. Negative: Cough Positive: Edema All Other Systems Reviewed And Are Negative: Yes Physical Exam - Summary Physical Exam Summary: VITAL SIGNS: Reviewed. GENERAL: Patient is a well-developed and nourished male who is lying comfortable in the stretcher. Patient is not in any acute respiratory distress. HEAD AND FACE: No signs of trauma. No ecchymosis, hematomas or skull depressions. No sinus tenderness. EYES: PERRLA, EOMI x 2, No injected conjunctiva, no nystagmus. EARS: Hearing grossly intact. Ear canals and tympanic membranes are within normal limits. MOUTH: Oropharynx within normal limits. NECK: Supple, trachea is midline, no adenopathy, no JVD, no carotid bruit, no c- spine tenderness, neck with full ROM. CHEST: Symmetric, no tenderness at palpation LUNGS:. Bilateral crackles CVS: Regular rate and rhythm, S1 and S2 present, no murmurs or gallops appreciated. ABDOMEN: Soft, non-tender. No signs of distention. No rebound no guarding, and no masses palpated. Bowel sounds are normal. EXTREMITIES: FROM in all major joints, no cyanosis or clubbing. Bilateral 1+ edema NEURO: Alert and oriented x 3. No acute neurological deficits. Speech is normal and follows commands. SKIN: Dry and warm. Triage Information Reviewed: Yes Vital Signs On Initial Exam: Initial Vitals Temp Pulse Resp BP Pulse Ox 97.7 F 110 26 138/97 94 12/22/18 17:28 12/22/18 17:28 12/22/18 17:28 12/22/18 17:28 12/22/18 17:28 Vital Signs Reviewed: Yes Diagnostics - Vital Signs Vital Signs Temp Pulse Resp BP Pulse Ox 12/22/18 17:41 101 16 126/89 95 12/22/18 17:37 105 14 133/92 96 12/22/18 17:36 107 93 12/22/18 17:28 97.7 F 110 26 138/97 94 - Laboratory Lab Statement: Any lab studies that have been ordered have been reviewed, and results considered in the medical decision making process. - Radiology CXR Radiology Interpretation Completed By: Radiologist Summary of Radiographic Findings: CHEST X-RAY FINDINGS ARE MOST INDICATIVE OF EXACERBATION OF CONGESTIVE HEART FAILURE. LIKELY WITH SMALL BIBASILAR PLEURAL EFFUSIONS. ED Physician has reviewed this report. - EKG 1734 Cardiac Rate: Tachycardia - 104 BPM EKG Rhythm: Sinus Tachycardia EKG Comparison: No Significant Change - similar to 06/25/18 Summary of EKG Findings: LBBB Course/Dx - Course Assessment/Plan: This patient is an 78 year old M presenting to [facility] [place] accompanied by and son with a chief complaint of night sweats with SOB for the past few weeks worsening today. Son reports an elevated breathing rate today of 24 while resting. Son additionally reports diaphoresis and pedal edema. Denies cough and CP. PMHx of CHF,GI bleed, hypertension, hypothyroidism and GERD. At this point I placed the patient in the cafeteria monitor, IV access was obtained. I ordered blood work and a chest x-ray. Chest x-ray impression: Findings are most indicated of exacerbation of CHF likely within the small bite basilar pleural effusion. Blood work is still pending. Therefore I will be signing out the patient to Dr. Acosta for further workup and management. I signed out the patient at shift change at 0700. Patient continues to be hemodynamically stable. - Diagnoses Provider Diagnoses: CHF exacerbation Discharge - Sign-Out/Discharge Documenting (check all that apply): Sign-Out Patient Signing out patient TO: Sahil Dennis - bloodwork - Discharge Plan Referrals: Ankita Lopez MD [Primary Care Provider] - - Attestation Statements Document Initiated by Scribe: Yes Documenting Scribe: Estefany Herrera Provider For Whom Jarred is Documenting (Include Credential): Edgardo Archibald MD Scribe Attestation: IEstefany, scribed for Edgardo Archibald MD on 12/22/18 at 1900. Scribe Documentation Reviewed: Yes Provider Attestation: The documentation as recorded by the gradyibeEstefany accurately reflects the service I personally performed and the decisions made by Edgardo molina MD Status of Scribe Document: Viewed
[2018-12-22 18:22] LABS: Urine Appearance Clear; Urine Bilirubin Negative (Negative); Urine Blood Negative (Negative); Urine Color Amber; Urine Glucose Negative (Negative); Urine Ketones Negative (Negative); Urine Nitrite Negative (Negative); Urine Protein Negative (Negative); Urine Specific Gravity 1.027 (1.010-1.030); Urine Urobilinogen Negative (Negative)
--- NOTE | 2018-12-22 19:03 | ED ---
Progress - Progress Note Progress Note: This patient is a sign-out from Dr. Edgardo Archibald to Dr. Sahil Dennis at 0700 on 12/22/18 at shift change pending blood work and disposition. Re-Evaluation - Re-Evaluation First Eval Re-Evaluation Time: 20:45 Comment: Discussed results with patient. Patient will be given dose of Lasix here and discharged home with dx of congestive heart failure exacerbation. Patient understands and agrees with this plan. Course/Dx - Course Course Of Treatment: This patient is a sign-out from Dr. Edgardo Archibald to Dr. Sahil Dennis at 0700 on 12/22/18 at shift change pending blood work and disposition. Blood work obtained. Discussed patient case with Dr. Reddy, corporate intern, who recommended the patient be discharged and given Lasix. In the ED course, patient was given Lasix. Patient will be discharged home with dx of congestive heart failure exacerbation. Patient understands and agrees with this plan. - Diagnoses Provider Diagnoses: CHF exacerbation - Provider Notifications Discussed Care Of Patient With: Wolf Reddy Time Discussed With Above Provider: 20:42 Instructed by Provider To: Other - Discussed patient case with Dr. Reddy who stated patient could be discharged home with dose of Lasix here and prescription for home. Discharge - Sign-Out/Discharge Documenting (check all that apply): Patient Departure - Discharge Patient Received Moderate/Deep Sedation with Procedure: No - Discharge Plan Condition: Stable Disposition: HOME Prescriptions: Torsemide TAB* [Demadex 20 MG*] 20 mg PO DAILY #30 tab Patient Education Materials: Heart Failure (ED) Referrals: Mauri Salas DO [Medical Doctor] - Additional Instructions: My hope is that the extra IV dose of lasix, coupled with a change to a different diuretic, will get you back a stable situation with respect to your CHF. Weigh yourself again tomorrow and contact the cardiology office to update them on your progress. For the next few days take the new diuretic daily, you can take it in the morning if that is easier for you. - Billing Disposition and Condition Condition: STABLE Disposition: Home - Attestation Statements Document Initiated by Scribe: Yes Documenting Scribe: Nawaf Brandt Provider For Whom Jarred is Documenting (Include Credential): Sahil Dennis MD [employer]ribotto Attestation: I, Nawaf Brandt, scribed for Sahil Dennis MD on 12/23/18 at 0314. Scribe Documentation Reviewed: Yes Provider Attestation: The documentation as recorded by the scribe, Nawaf Brandt accurately reflects the service I personally performed and the decisions made by me, Sahil Dennis MD Status of Scribe Document: Viewed
[2018-12-22 19:12] LABS: ABS Basophils 0.1 10^3/ul (0-0.2); ABS Eosinophils 0.2 10^3/ul (0-0.6); ABS Lymphocytes 1.7 10^3/ul (1.0-4.8); ABS Monocytes 0.9 10^3/ul (0-0.8); ABS Neutrophils 8.2 10^3/ul (1.5-7.7); Eosinophil % 1.7 %; Hematocrit 44 % (42-52); Hemoglobin 13.6 g/dL (14.0-18.0); Lymphocyte % 15.4 %; Mean Corpuscular HGB Conc 31 g/dL (31-36); Mean Corpuscular Hemoglobin 25 pg (27-31); Mean Corpuscular Volume 79 fL (80-94); Mean Platelet Volume 9.1 fL (7.4-10.4); Nucleated Red Blood Cells % 0.1; Platelet Count 246 10^3/uL (150-450); Red Blood Count 5.55 10^6 /uL (4.18-5.48); Red Cell Distribution Width 20 % (10.5-15); White Blood Count 11.1 10^3/uL (3.5-10.8)
[2018-12-22 19:30] LABS: Albumin 4.1 g/dL (3.2-5.2); Albumin/Globulin Ratio 1.7 (1-3); BUN/Creatinine Ratio 21.1 (8-20); C Reactive Protein 13.55 mg/L (<8.01); Calcium 9.3 mg/dL (8.6-10.3); EGFR African American 74.8 (>60); EGFR Non-African American 61.8 (>60); Globulin 2.4 g/dL (2-4); Potassium 4.5 mmol/L (3.5-5.0); Total Bilirubin 0.6 mg/dL (0.2-1.0); Total Protein 6.5 g/dL (6.4-8.9)
[2018-12-22 19:32] LABS: Troponin I 0.03 ng/mL (<0.04)
[2018-12-22 19:34] LABS: CKMB ng/mL 2.7 ng/mL (0.6-6.3)
[2018-12-22] MEDS ORDERED: Furosemide IV* 10 MG/ML VIAL (40 MG) IV ONE (20:44)
[2018-12-22 21:44] VITALS: BP 158/100
== END 2018-12-22 21:43 | disposition home or self-care (01) ==
LOC: ED 17:26
DX: I50.9 Heart failure, unspecified (principal); I10 Essential (primary) hypertension; K21.0 Gastro-esophageal reflux disease with esophagitis; Z87.891 Personal history of nicotine dependence; R06.02 Shortness of breath
CPT/HCPCS: 36415; 71046; 80053; 81003; 82550; 82553; 83605; 83880; 84484; 85025; 85730; 86140; 87040; 93005; 96374; 99284; J1940

== ENCOUNTER 2020-07-19 11:12 | Inpatient (IN) ==
[2020-07-19 12:16] LABS: ABS Eosinophils 0.2 10^3/ul (0-0.6); ABS Lymphocytes 1.4 10^3/ul (1.0-4.8); ABS Monocytes 0.8 10^3/ul (0-0.8); ABS Neutrophils 8.2 10^3/ul (1.5-7.7); Eosinophil % 1.6 %; Hematocrit 49 % (42-52); Hemoglobin 16.2 g/dL (14.0-18.0); Lymphocyte % 13.3 %; Mean Corpuscular HGB Conc 33 g/dL (31-36); Mean Corpuscular Hemoglobin 31 pg (27-31); Mean Corpuscular Volume 93 fL (80-94); Mean Platelet Volume 8.1 fL (7.4-10.4); Platelet Count 227 10^3/uL (150-450); Red Cell Distribution Width 16 % (10-15); White Blood Count 10.6 10^3/uL (3.5-10.8)
[2020-07-19 12:40] LABS: Albumin 3.9 g/dL (3.2-5.2); Albumin/Globulin Ratio 1.6 (1-3); BUN/Creatinine Ratio 18.5 (8-20); Calcium 9.4 mg/dL (8.6-10.3); EGFR African American 70.8 (>60); EGFR Non-African American 58.5 (>60); Globulin 2.4 g/dL (2-4); Potassium 3.7 mmol/L (3.5-5.0); Total Protein 6.3 g/dL (6.4-8.9)
[2020-07-19] MEDS ORDERED: Iodixanol (CONTRAST) 320 MG/ML 100 ML SDV IV ONE (13:05)
[2020-07-19] MEDS ORDERED: Al Hydrox/Mg Hydrox/Simet LIQ 30 ML UDC PO PRN (15:09)
[2020-07-19] MEDS: Aspirin EC 81 mg TAB.EC (enteric coated) PO SCH (17:33)
[2020-07-19] MEDS: Heparin 5000 UNITS/ML 1 mL VIAL SUBCUT SCH (20:34)
[2020-07-20 05:54] LABS: HDL Cholesterol 25.7 mg/dL
[2020-07-20] MEDS: Heparin 5000 UNITS/ML 1 mL VIAL SUBCUT SCH ×3 (06:14→20:44)
[2020-07-20] MEDS ORDERED: Perflutren Lipid Microsphere 3 ML VIAL ONE (08:16)
[2020-07-20] MEDS ORDERED: Influenza VAC *QUAD* 2020-21* 0.5 ML SYRINGE IM ONE (09:00)
[2020-07-20] MEDS: Cholecalciferol (VIT D3) 1,000 unit TAB PO SCH (10:29)
[2020-07-20] MEDS: Aspirin EC 81 mg TAB.EC (enteric coated) PO SCH (10:30)
[2020-07-20] MEDS: DULoxetine DR 60 mg CAP PO SCH (10:30)
[2020-07-21 04:56] LABS: Hematocrit 42 % (42-52); Hemoglobin 14.1 g/dL (14.0-18.0); Mean Corpuscular HGB Conc 34 g/dL (31-36); Mean Corpuscular Hemoglobin 31 pg (27-31); Mean Corpuscular Volume 92 fL (80-94); Platelet Count 181 10^3/uL (150-450); Red Blood Count 4.52 10^6 /uL (4.18-5.48); Red Cell Distribution Width 17 % (10-15); White Blood Count 9.5 10^3/uL (3.5-10.8)
[2020-07-21 05:28] LABS: Calcium 8.8 mg/dL (8.6-10.3); EGFR African American 101.7 (>60); Potassium 3.9 mmol/L (3.5-5.0)
[2020-07-21] MEDS: Heparin 5000 UNITS/ML 1 mL VIAL SUBCUT SCH (05:47)
[2020-07-21] MEDS: Aspirin EC 81 mg TAB.EC (enteric coated) PO SCH (10:07)
[2020-07-21] MEDS: DULoxetine DR 60 mg CAP PO SCH (10:07)
[2020-07-21] MEDS: Cholecalciferol (VIT D3) 1,000 unit TAB PO SCH (10:07)
[2020-07-21 14:22] VITALS: BP 115/59
== END 2020-07-21 15:22 | DRG 65 ==
LOC: ED 11:12 → MEDTELE 15:10
PROVIDERS: ADMIT Internal Medicine; ATTEND Internal Medicine

== ENCOUNTER 2020-09-13 21:09 | Inpatient (IN) ==
[2020-09-13 22:25] LABS: Hematocrit 45 % (42-52); Hemoglobin 15.8 g/dL (14.0-18.0); Mean Corpuscular HGB Conc 35 g/dL (31-36); Mean Corpuscular Hemoglobin 32 pg (27-31); Mean Corpuscular Volume 91 fL (80-94); Mean Platelet Volume 7.9 fL (7.4-10.4); Platelet Count 345 10^3/uL (150-450); Red Blood Count 4.95 10^6 /uL (4.18-5.48); Red Cell Distribution Width 17 % (10-15); White Blood Count 18.2 10^3/uL (3.5-10.8)
[2020-09-13 22:33] LABS: INR 1.15 (0.82-1.09)
[2020-09-13 22:42] LABS: ALT 22 U/L (7-52); Albumin/Globulin Ratio 1.1 (1-3); Alkaline Phosphatase 98 U/L (34-104); BUN/Creatinine Ratio 18.8 (8-20); Blood Urea Nitrogen 27 mg/dL (6-24); CO2 Carbon Dioxide 30 mmol/L (22-32); Calcium 9.4 mg/dL (8.6-10.3); Chloride 94 mmol/L (101-111); EGFR African American 56.8 (>60); Globulin 3.6 g/dL (2-4); Glucose 102 mg/dL (70-100); Magnesium 2.2 mg/dL (1.9-2.7); Sodium 133 mmol/L (135-145); Total Protein 7.6 g/dL (6.4-8.9)
[2020-09-13 22:45] LABS: Troponin I 0.02 ng/mL (<0.03)
[2020-09-13 22:51] LABS: ABS Basophils 0.1 10^3/ul (0-0.2); ABS Eosinophils 0.3 10^3/ul (0-0.6); ABS Lymphocytes 1.3 10^3/ul (1.0-4.8); ABS Monocytes 0.9 10^3/ul (0-0.8); ABS Neutrophils 15.5 10^3/ul (1.5-7.7); Eosinophil % 1.8 %; Lymphocyte % 7.4 %
[2020-09-13] MEDS ORDERED: Albuterol HFA INHALER 8 gm MDI INH ONE (22:54)
[2020-09-13] MEDS ORDERED: NS 0.9% 1000 ml BAG 1,000 ML IV ONE (23:05)
[2020-09-13] MEDS ORDERED: Piperacillin/Tazobac ADVAN 3.375 GM in NS 0.9% 100 ml BAG 100 ML IVPB ONE (23:20)
[2020-09-13] MEDS ORDERED: Iodixanol (CONTRAST) 320 MG/ML 100 ML SDV IV ONE (23:23)
[2020-09-13] MEDS ORDERED: NS 0.9% IV ONE (23:30)
[2020-09-13 23:36] LABS: Anion Gap 9 mmol/L (2-11)
[2020-09-13] MEDS ORDERED: Vancomycin 1,250 MG in NS 0.9% 250 ml 250 ML IVPB SCH (23:45)
[2020-09-14] MEDS ORDERED: NS 0.9% 1000 ml BAG 1,000 ML IV SCH (01:30)
[2020-09-14 01:31] LABS: C Reactive Protein 142.13 mg/L (<8.01)
[2020-09-14] MEDS ORDERED: cefTRIAXone 1 gm/50 mL NS BAG 1 GM/50 ML BAG IV ONE (02:41)
[2020-09-14] MEDS: cefTRIAXone 1 gm/50 mL NS BAG 1 GM/50 ML BAG IVPB SCH (04:22)
[2020-09-14 05:35] LABS: Urine Appearance Clear; Urine Bilirubin Negative (Negative); Urine Blood Negative (Negative); Urine Color Yellow; Urine Glucose Negative (Negative); Urine Ketones Negative (Negative); Urine Nitrite Negative (Negative); Urine Protein Negative (Negative); Urine Specific Gravity 1.031 (1.010-1.030); Urine Urobilinogen Negative (Negative)
[2020-09-14 06:07] LABS: Hematocrit 41 % (42-52); Hemoglobin 13.9 g/dL (14.0-18.0); Mean Corpuscular HGB Conc 34 g/dL (31-36); Mean Corpuscular Hemoglobin 31 pg (27-31); Mean Corpuscular Volume 92 fL (80-94); Mean Platelet Volume 7.8 fL (7.4-10.4); Platelet Count 273 10^3/uL (150-450); Red Blood Count 4.47 10^6 /uL (4.18-5.48); Red Cell Distribution Width 17 % (10-15); White Blood Count 17.3 10^3/uL (3.5-10.8)
[2020-09-14 06:22] LABS: ABS Basophils 0.1 10^3/ul (0-0.2); ABS Eosinophils 0.1 10^3/ul (0-0.6); ABS Monocytes 1.2 10^3/ul (0-0.8); ABS Neutrophils 14.8 10^3/ul (1.5-7.7); Eosinophil % 0.8 %; Nucleated Red Blood Cells % 0.1
[2020-09-14 06:25] LABS: ALT 17 U/L (7-52); AST 15 U/L (13-39); Albumin 3.1 g/dL (3.2-5.2); Albumin/Globulin Ratio 1.2 (1-3); Alkaline Phosphatase 77 U/L (34-104); Anion Gap 6 mmol/L (2-11); BUN/Creatinine Ratio 21.8 (8-20); Blood Urea Nitrogen 27 mg/dL (6-24); CO2 Carbon Dioxide 26 mmol/L (22-32); Calcium 7.8 mg/dL (8.6-10.3); Chloride 102 mmol/L (101-111); EGFR African American 67.5 (>60); EGFR Non-African American 55.8 (>60); Globulin 2.6 g/dL (2-4); Glucose 121 mg/dL (70-100); Sodium 134 mmol/L (135-145); Total Protein 5.7 g/dL (6.4-8.9)
[2020-09-14 06:27] LABS: Influenza A Molecular Negative (Negative); Influenza B Molecular Negative (Negative)
[2020-09-14 06:37] LABS: Troponin I 0.03 ng/mL (<0.03)
[2020-09-14] MEDS: Azithromycin 500 mg/250 ml NS 500 MG/250 ML BAG IVPB SCH (06:44)
[2020-09-14] MEDS: Hydrocortisone INJ 100 MG/2ML 2 ML VIAL IV SCH ×3 (08:16→22:37)
[2020-09-14] MEDS: Heparin 5000 UNITS/ML 1 mL VIAL SUBCUT SCH ×3 (08:16→22:36)
[2020-09-14] MEDS: POLYSACCHARIDE IRON COMPLEX 150 MG PO SCH (08:17)
[2020-09-14 09:21] LABS: Troponin I 0.03 ng/mL (<0.03)
[2020-09-14] MEDS: Polyethylene Glycol 3350 17 GM PACKET PO SCH (11:04)
[2020-09-14 12:59] LABS: Troponin I 0.03 ng/mL (<0.03)
[2020-09-15] MEDS: cefTRIAXone 1 gm/50 mL NS BAG 1 GM/50 ML BAG IVPB SCH (03:22)
[2020-09-15] MEDS: Azithromycin 500 mg/250 ml NS 500 MG/250 ML BAG IVPB SCH (04:19)
[2020-09-15 04:47] LABS: Hematocrit 43 % (42-52); Hemoglobin 14.4 g/dL (14.0-18.0); Mean Corpuscular HGB Conc 34 g/dL (31-36); Mean Corpuscular Hemoglobin 31 pg (27-31); Mean Corpuscular Volume 92 fL (80-94); Mean Platelet Volume 8.1 fL (7.4-10.4); Platelet Count 288 10^3/uL (150-450); Red Blood Count 4.66 10^6 /uL (4.18-5.48); Red Cell Distribution Width 17 % (10-15); White Blood Count 22.4 10^3/uL (3.5-10.8)
[2020-09-15 04:52] LABS: INR 1.36 (0.82-1.09)
[2020-09-15 05:02] LABS: BUN/Creatinine Ratio 22.1 (8-20); Calcium 8.4 mg/dL (8.6-10.3); EGFR African American 60.7 (>60); EGFR Non-African American 50.2 (>60); Potassium 4.2 mmol/L (3.5-5.0)
[2020-09-15] MEDS: Heparin 5000 UNITS/ML 1 mL VIAL SUBCUT SCH ×3 (06:01→21:56)
[2020-09-15] MEDS: Hydrocortisone INJ 100 MG/2ML 2 ML VIAL IV SCH ×3 (06:01→21:56)
[2020-09-15 07:03] LABS: ABS Basophils 0.1 10^3/ul (0-0.2); ABS Lymphocytes 0.7 10^3/ul (1.0-4.8); ABS Neutrophils 20.6 10^3/ul (1.5-7.7); Lymphocyte % 3.1 %
[2020-09-15] MEDS: Polyethylene Glycol 3350 17 GM PACKET PO SCH (08:10)
[2020-09-15] MEDS: oxyCODONE/Acetamin 5/325 mg TAB PO PRN ×2 (13:47→20:04)
[2020-09-16] MEDS: cefTRIAXone 1 gm/50 mL NS BAG 1 GM/50 ML BAG IVPB SCH (02:44)
[2020-09-16] MEDS: Azithromycin 500 mg/250 ml NS 500 MG/250 ML BAG IVPB SCH (04:16)
[2020-09-16] MEDS: Heparin 5000 UNITS/ML 1 mL VIAL SUBCUT SCH ×3 (04:33→21:45)
[2020-09-16 06:11] LABS: Hematocrit 38 % (42-52); Hemoglobin 12.4 g/dL (14.0-18.0); Mean Corpuscular HGB Conc 33 g/dL (31-36); Mean Corpuscular Hemoglobin 30 pg (27-31); Mean Corpuscular Volume 93 fL (80-94); Mean Platelet Volume 8.2 fL (7.4-10.4); Platelet Count 325 10^3/uL (150-450); Red Blood Count 4.08 10^6 /uL (4.18-5.48); Red Cell Distribution Width 17 % (10-15); White Blood Count 20.6 10^3/uL (3.5-10.8)
[2020-09-16] MEDS: Hydrocortisone INJ 100 MG/2ML 2 ML VIAL IV SCH ×3 (06:13→21:44)
[2020-09-16 06:23] LABS: BUN/Creatinine Ratio 26.4 (8-20); C Reactive Protein 271.14 mg/L (<8.01); Calcium 8.3 mg/dL (8.6-10.3); EGFR African American 56.8 (>60); Potassium 3.9 mmol/L (3.5-5.0)
[2020-09-16] MEDS: Polyethylene Glycol 3350 17 GM PACKET PO SCH (07:45)
[2020-09-16] MEDS: POLYSACCHARIDE IRON COMPLEX 150 MG PO SCH (07:45)
[2020-09-16 08:19] LABS: ABS Basophils 0.2 10^3/ul (0-0.2); ABS Lymphocytes 0.8 10^3/ul (1.0-4.8); ABS Monocytes 1.1 10^3/ul (0-0.8); ABS Neutrophils 18.4 10^3/ul (1.5-7.7); Lymphocyte % 3.9 %
[2020-09-16 16:47] LABS: Body Fluid Source Pleural Fluid
[2020-09-16 18:35] LABS: Body Fluid Mono 3 %
[2020-09-16] MEDS: oxyCODONE/Acetamin 5/325 mg TAB PO PRN (21:43)
[2020-09-17] MEDS: cefTRIAXone 1 gm/50 mL NS BAG 1 GM/50 ML BAG IVPB SCH (02:51)
[2020-09-17] MEDS: Azithromycin 500 mg/250 ml NS 500 MG/250 ML BAG IVPB SCH (04:20)
[2020-09-17] MEDS: Hydrocortisone INJ 100 MG/2ML 2 ML VIAL IV SCH ×3 (06:10→20:37)
[2020-09-17] MEDS: Heparin 5000 UNITS/ML 1 mL VIAL SUBCUT SCH ×3 (06:10→20:38)
[2020-09-17 06:27] LABS: ABS Lymphocytes 0.7 10^3/ul (1.0-4.8); ABS Monocytes 0.8 10^3/ul (0-0.8); ABS Neutrophils 12.1 10^3/ul (1.5-7.7); Hematocrit 35 % (42-52); Hemoglobin 11.6 g/dL (14.0-18.0); Mean Corpuscular HGB Conc 33 g/dL (31-36); Mean Corpuscular Hemoglobin 31 pg (27-31); Mean Corpuscular Volume 93 fL (80-94); Mean Platelet Volume 8.4 fL (7.4-10.4); Platelet Count 325 10^3/uL (150-450); Red Blood Count 3.76 10^6 /uL (4.18-5.48); Red Cell Distribution Width 17 % (10-15); White Blood Count 13.6 10^3/uL (3.5-10.8)
[2020-09-17 06:49] LABS: BUN/Creatinine Ratio 28.8 (8-20); Calcium 8.1 mg/dL (8.6-10.3); EGFR African American 62.8 (>60); EGFR Non-African American 51.9 (>60)
[2020-09-17] MEDS: Polyethylene Glycol 3350 17 GM PACKET PO SCH (08:43)
[2020-09-17] MEDS: oxyCODONE/Acetamin 5/325 mg TAB PO PRN ×2 (08:45→17:18)
[2020-09-17] MEDS ORDERED: Alteplase (CATHFLO) 10 MG in NS 0.9% 50 ML 40 ML INTRAPLEUR SCH (12:00)
[2020-09-17] MEDS ORDERED: DORNASE ALFA 1 mg/ml(NF) 5 MG in NS 0.9% 50 ML 45 ML INTRAPLEUR SCH (12:00)
[2020-09-18] MEDS: oxyCODONE/Acetamin 5/325 mg TAB PO PRN (02:47)
[2020-09-18] MEDS: cefTRIAXone 1 gm/50 mL NS BAG 1 GM/50 ML BAG IVPB SCH (02:47)
[2020-09-18] MEDS: Azithromycin 500 mg/250 ml NS 500 MG/250 ML BAG IVPB SCH (04:44)
[2020-09-18] MEDS: Heparin 5000 UNITS/ML 1 mL VIAL SUBCUT SCH ×3 (05:53→20:39)
[2020-09-18 06:29] LABS: Hematocrit 39 % (42-52); Hemoglobin 12.9 g/dL (14.0-18.0); Mean Corpuscular HGB Conc 33 g/dL (31-36); Mean Corpuscular Hemoglobin 31 pg (27-31); Mean Corpuscular Volume 93 fL (80-94); Mean Platelet Volume 8.3 fL (7.4-10.4); Platelet Count 354 10^3/uL (150-450); Red Blood Count 4.23 10^6 /uL (4.18-5.48); Red Cell Distribution Width 17 % (10-15); White Blood Count 16.1 10^3/uL (3.5-10.8)
[2020-09-18 06:47] LABS: Calcium 8.2 mg/dL (8.6-10.3); EGFR African American 70.1 (>60); Magnesium 2.3 mg/dL (1.9-2.7)
[2020-09-18 07:42] LABS: ABS Basophils 0.2 10^3/ul (0-0.2); ABS Lymphocytes 0.9 10^3/ul (1.0-4.8); Lymphocyte % 5.5 %
[2020-09-18] MEDS: Polyethylene Glycol 3350 17 GM PACKET PO SCH (08:54)
[2020-09-18] MEDS: Hydrocortisone INJ 100 MG/2ML 2 ML VIAL IV SCH (08:54)
[2020-09-18] MEDS: POLYSACCHARIDE IRON COMPLEX 150 MG PO SCH (10:13)
[2020-09-18 13:01] LABS: C Reactive Protein 130.04 mg/L (<8.01)
[2020-09-18] MEDS: metroNIDAZOLE IV 500 MG/100ML 500 MG/100 ML BAG IVPB SCH ×2 (14:12→20:37)
[2020-09-18] MEDS: Alteplase (CATHFLO) 10 MG in NS 0.9% 50 ML 40 ML INTRAPLEUR SCH ×3 (17:18→20:21)
[2020-09-18] MEDS: DORNASE ALFA 1 mg/ml(NF) 5 MG in NS 0.9% 50 ML 45 ML INTRAPLEUR SCH ×3 (17:18→20:22)
[2020-09-18] MEDS ORDERED: NS 0.9% w/ 20 Meq KCL 1000 ml 1,000 ML IV SCH (19:00)
[2020-09-18] MEDS: Magnesium Hydroxide LIQ 30 ML UDC PO PRN (20:39)
[2020-09-18] MEDS ORDERED: POLYSACCHARIDE IRON COMPLEX 150 MG PO ONE (21:00)
[2020-09-19] MEDS: cefTRIAXone 1 gm/50 mL NS BAG 1 GM/50 ML BAG IVPB SCH (01:58)
[2020-09-19 05:22] LABS: Hematocrit 39 % (42-52); Hemoglobin 12.5 g/dL (14.0-18.0); Mean Corpuscular HGB Conc 33 g/dL (31-36); Mean Corpuscular Hemoglobin 30 pg (27-31); Mean Corpuscular Volume 93 fL (80-94); Mean Platelet Volume 8.3 fL (7.4-10.4); Platelet Count 349 10^3/uL (150-450); Red Blood Count 4.15 10^6 /uL (4.18-5.48); Red Cell Distribution Width 17 % (10-15); White Blood Count 12.8 10^3/uL (3.5-10.8)
[2020-09-19] MEDS: Heparin 5000 UNITS/ML 1 mL VIAL SUBCUT SCH (05:30)
[2020-09-19] MEDS: metroNIDAZOLE IV 500 MG/100ML 500 MG/100 ML BAG IVPB SCH ×3 (05:30→20:18)
[2020-09-19 05:37] LABS: BUN/Creatinine Ratio 29.9 (8-20); EGFR African American 72.2 (>60); EGFR Non-African American 59.7 (>60); Magnesium 2.4 mg/dL (1.9-2.7); Potassium 3.8 mmol/L (3.5-5.0)
[2020-09-19 05:39] LABS: ABS Eosinophils 0.1 10^3/ul (0-0.6); ABS Lymphocytes 1.1 10^3/ul (1.0-4.8); ABS Monocytes 0.8 10^3/ul (0-0.8); ABS Neutrophils 10.7 10^3/ul (1.5-7.7); Eosinophil % 1.1 %; Lymphocyte % 8.8 %
[2020-09-19] MEDS ORDERED: Iodixanol (CONTRAST) 320 MG/ML 100 ML SDV IV ONE (08:57)
[2020-09-19] MEDS ORDERED: D5W 1/2 NS 1000 ml BAG 1,000 ML IV SCH (09:00)
[2020-09-19] MEDS: Hydrocortisone INJ 100 MG/2ML 2 ML VIAL IV SCH (09:00)
[2020-09-19] MEDS: Polyethylene Glycol 3350 17 GM PACKET PO SCH (09:01)
[2020-09-19] MEDS: Alteplase (CATHFLO) 10 MG in NS 0.9% 50 ML 40 ML INTRAPLEUR SCH (10:53)
[2020-09-19] MEDS: DORNASE ALFA 1 mg/ml(NF) 5 MG in NS 0.9% 50 ML 45 ML INTRAPLEUR SCH (10:53)
[2020-09-19 13:04] LABS: Hematocrit 42 % (42-52); Hemoglobin 13.4 g/dL (14.0-18.0)
[2020-09-19 15:03] LABS: Fluid Type, Glucose PLEURAL; Glucose, BF 107 mg/dL
[2020-09-19 15:05] LABS: Albumin, BF 2.4 g/dL; Fluid Type, Albumin PLEURAL; Fluid Type, Protein, Total PLEURAL
[2020-09-19] MEDS: oxyCODONE/Acetamin 5/325 mg TAB PO PRN (20:13)
[2020-09-20] MEDS: cefTRIAXone 1 gm/50 mL NS BAG 1 GM/50 ML BAG IVPB SCH (03:45)
[2020-09-20] MEDS: metroNIDAZOLE IV 500 MG/100ML 500 MG/100 ML BAG IVPB SCH ×3 (05:57→21:00)
[2020-09-20 07:27] LABS: ABS Basophils 0.1 10^3/ul (0-0.2); ABS Eosinophils 0.3 10^3/ul (0-0.6); ABS Lymphocytes 1.1 10^3/ul (1.0-4.8); ABS Monocytes 0.7 10^3/ul (0-0.8); ABS Neutrophils 9.8 10^3/ul (1.5-7.7); Eosinophil % 2.3 %; Hematocrit 38 % (42-52); Hemoglobin 12.4 g/dL (14.0-18.0); Lymphocyte % 9.3 %; Mean Corpuscular HGB Conc 33 g/dL (31-36); Mean Corpuscular Hemoglobin 31 pg (27-31); Mean Corpuscular Volume 94 fL (80-94); Mean Platelet Volume 8.2 fL (7.4-10.4); Nucleated Red Blood Cells % 0.3; Platelet Count 367 10^3/uL (150-450); Red Blood Count 4.03 10^6 /uL (4.18-5.48); Red Cell Distribution Width 17 % (10-15); White Blood Count 11.9 10^3/uL (3.5-10.8)
[2020-09-20 07:43] LABS: Albumin 2.6 g/dL (3.2-5.2); Albumin/Globulin Ratio 1.1 (1-3); BUN/Creatinine Ratio 30.6 (8-20); C Reactive Protein 101.89 mg/L (<8.01); Calcium 7.8 mg/dL (8.6-10.3); EGFR African American 69.5 (>60); EGFR Non-African American 57.4 (>60); Globulin 2.4 g/dL (2-4); Magnesium 2.4 mg/dL (1.9-2.7); Potassium 3.5 mmol/L (3.5-5.0); Total Bilirubin 0.7 mg/dL (0.2-1.0)
[2020-09-20] MEDS: oxyCODONE/Acetamin 5/325 mg TAB PO PRN ×3 (08:31→21:06)
[2020-09-20] MEDS: Polyethylene Glycol 3350 17 GM PACKET PO SCH (08:33)
[2020-09-20] MEDS: POLYSACCHARIDE IRON COMPLEX 150 MG PO SCH (08:59)
[2020-09-20] MEDS: Hydrocortisone INJ 100 MG/2ML 2 ML VIAL IV SCH (08:59)
[2020-09-20] MEDS ORDERED: D5W 1/4 NS 1000 ml BAG 1,000 ML IV SCH (13:00)
[2020-09-20] MEDS: D5W 1/4 NS 1000 ml BAG 1,000 ML IV SCH (18:21)
[2020-09-21] MEDS: cefTRIAXone 1 gm/50 mL NS BAG 1 GM/50 ML BAG IVPB SCH (03:19)
[2020-09-21] MEDS: metroNIDAZOLE IV 500 MG/100ML 500 MG/100 ML BAG IVPB SCH ×3 (05:42→20:05)
[2020-09-21] MEDS: oxyCODONE/Acetamin 5/325 mg TAB PO PRN ×2 (08:39→18:06)
[2020-09-21] MEDS: Polyethylene Glycol 3350 17 GM PACKET PO SCH (08:41)
[2020-09-21] MEDS: D5W 1/4 NS 1000 ml BAG 1,000 ML IV SCH (12:15)
[2020-09-21] MEDS: Heparin 5000 UNITS/ML 1 mL VIAL SUBCUT SCH ×2 (13:38→21:01)
[2020-09-22] MEDS: cefTRIAXone 1 gm/50 mL NS BAG 1 GM/50 ML BAG IVPB SCH (02:48)
[2020-09-22] MEDS: metroNIDAZOLE IV 500 MG/100ML 500 MG/100 ML BAG IVPB SCH ×3 (05:35→20:28)
[2020-09-22] MEDS: Heparin 5000 UNITS/ML 1 mL VIAL SUBCUT SCH ×3 (05:38→20:31)
[2020-09-22 06:14] LABS: Hematocrit 39 % (42-52); Hemoglobin 12.9 g/dL (14.0-18.0); Mean Corpuscular HGB Conc 33 g/dL (31-36); Mean Corpuscular Hemoglobin 31 pg (27-31); Mean Corpuscular Volume 93 fL (80-94); Mean Platelet Volume 8.2 fL (7.4-10.4); Platelet Count 373 10^3/uL (150-450); Red Blood Count 4.22 10^6 /uL (4.18-5.48); Red Cell Distribution Width 17 % (10-15); White Blood Count 18.1 10^3/uL (3.5-10.8)
[2020-09-22 06:33] LABS: BUN/Creatinine Ratio 25.9 (8-20); Calcium 8.1 mg/dL (8.6-10.3); EGFR African American 79.2 (>60); EGFR Non-African American 65.5 (>60); Potassium 3.7 mmol/L (3.5-5.0)
[2020-09-22 07:37] LABS: ABS Basophils 0.1 10^3/ul (0-0.2); ABS Eosinophils 0.3 10^3/ul (0-0.6); ABS Lymphocytes 1.6 10^3/ul (1.0-4.8); ABS Monocytes 0.9 10^3/ul (0-0.8); ABS Neutrophils 15.2 10^3/ul (1.5-7.7); Eosinophil % 1.7 %; Lymphocyte % 8.6 %; Nucleated Red Blood Cells % 0.2
[2020-09-22] MEDS: oxyCODONE/Acetamin 5/325 mg TAB PO PRN (08:33)
[2020-09-22] MEDS: Polyethylene Glycol 3350 17 GM PACKET PO SCH (08:34)
[2020-09-22] MEDS: D5W 1/4 NS 1000 ml BAG 1,000 ML IV SCH (13:16)
[2020-09-22] MEDS: POLYSACCHARIDE IRON COMPLEX 150 MG PO SCH (13:17)
[2020-09-23 05:09] LABS: Hematocrit 39 % (42-52); Hemoglobin 12.7 g/dL (14.0-18.0); Mean Corpuscular HGB Conc 33 g/dL (31-36); Mean Corpuscular Hemoglobin 30 pg (27-31); Mean Corpuscular Volume 92 fL (80-94); Mean Platelet Volume 8.1 fL (7.4-10.4); Platelet Count 375 10^3/uL (150-450); Red Blood Count 4.22 10^6 /uL (4.18-5.48); Red Cell Distribution Width 17 % (10-15); White Blood Count 20.8 10^3/uL (3.5-10.8)
[2020-09-23 05:25] LABS: BUN/Creatinine Ratio 21.3 (8-20); EGFR African American 79.2 (>60); EGFR Non-African American 65.5 (>60); Potassium 3.6 mmol/L (3.5-5.0)
[2020-09-23 05:37] LABS: ABS Basophils 0.1 10^3/ul (0-0.2); ABS Eosinophils 0.2 10^3/ul (0-0.6); ABS Lymphocytes 1.4 10^3/ul (1.0-4.8); ABS Monocytes 1.1 10^3/ul (0-0.8); ABS Neutrophils 18.1 10^3/ul (1.5-7.7); Eosinophil % 0.7 %; Lymphocyte % 6.6 %; Nucleated Red Blood Cells % 0.2
[2020-09-23] MEDS: Heparin 5000 UNITS/ML 1 mL VIAL SUBCUT SCH ×3 (06:31→21:09)
[2020-09-23] MEDS ORDERED: Amoxicillin/Clavul 875/125 TAB (Augmentin 875 tab) PO SCH (09:00)
[2020-09-23] MEDS: oxyCODONE/Acetamin 5/325 mg TAB PO PRN (10:05)
[2020-09-23] MEDS: Magnesium Hydroxide LIQ 30 ML UDC PO PRN (10:10)
[2020-09-23] MEDS: Polyethylene Glycol 3350 17 GM PACKET PO SCH (11:09)
[2020-09-24] MEDS: Heparin 5000 UNITS/ML 1 mL VIAL SUBCUT SCH ×3 (05:31→21:55)
[2020-09-24 06:50] LABS: BUN/Creatinine Ratio 21.9 (8-20); Blood Urea Nitrogen 23 mg/dL (6-24); C Reactive Protein 195.09 mg/L (<8.01); CO2 Carbon Dioxide 26 mmol/L (22-32); Calcium 8.1 mg/dL (8.6-10.3); EGFR African American 81.8 (>60); EGFR Non-African American 67.6 (>60); Glucose 100 mg/dL (70-100); Sodium 145 mmol/L (135-145)
[2020-09-24 07:25] LABS: Chloride 113 mmol/L (101-111)
[2020-09-24 07:56] LABS: Anion Gap 6 mmol/L (2-11)
[2020-09-24] MEDS: Polyethylene Glycol 3350 17 GM PACKET PO SCH (08:22)
[2020-09-24] MEDS: oxyCODONE/Acetamin 5/325 mg TAB PO PRN ×3 (08:27→21:48)
[2020-09-24 08:32] LABS: ABS Basophils 0.2 10^3/ul (0-0.2); ABS Eosinophils 0.2 10^3/ul (0-0.6); ABS Monocytes 0.9 10^3/ul (0-0.8); ABS Neutrophils 16.8 10^3/ul (1.5-7.7); Eosinophil % 1.1 %; Hematocrit 38 % (42-52); Hemoglobin 12.6 g/dL (14.0-18.0); Mean Corpuscular HGB Conc 33 g/dL (31-36); Mean Corpuscular Hemoglobin 31 pg (27-31); Mean Corpuscular Volume 92 fL (80-94); Mean Platelet Volume 8.6 fL (7.4-10.4); Nucleated Red Blood Cells % 0.2; Platelet Count 341 10^3/uL (150-450); Red Blood Count 4.11 10^6 /uL (4.18-5.48); Red Cell Distribution Width 18 % (10-15)
[2020-09-24] MEDS: POLYSACCHARIDE IRON COMPLEX 150 MG PO SCH (08:38)
[2020-09-24] MEDS: Amoxicillin/Clavul 875/125 TAB (Augmentin 875 tab) PO SCH (21:45)
[2020-09-25] MEDS: oxyCODONE/Acetamin 5/325 mg TAB PO PRN ×3 (05:57→21:44)
[2020-09-25] MEDS: Heparin 5000 UNITS/ML 1 mL VIAL SUBCUT SCH ×3 (05:58→21:45)
[2020-09-25 09:05] LABS: ABS Basophils 0.1 10^3/ul (0-0.2); ABS Eosinophils 0.2 10^3/ul (0-0.6); ABS Lymphocytes 1.3 10^3/ul (1.0-4.8); ABS Monocytes 0.7 10^3/ul (0-0.8); ABS Neutrophils 11.3 10^3/ul (1.5-7.7); Eosinophil % 1.4 %; Hematocrit 38 % (42-52); Hemoglobin 12.4 g/dL (14.0-18.0); Lymphocyte % 9.6 %; Mean Corpuscular HGB Conc 32 g/dL (31-36); Mean Corpuscular Hemoglobin 30 pg (27-31); Mean Corpuscular Volume 93 fL (80-94); Mean Platelet Volume 8.6 fL (7.4-10.4); Platelet Count 340 10^3/uL (150-450); Red Blood Count 4.12 10^6 /uL (4.18-5.48); Red Cell Distribution Width 17 % (10-15); White Blood Count 13.6 10^3/uL (3.5-10.8)
[2020-09-25 09:20] LABS: BUN/Creatinine Ratio 22.9 (8-20); C Reactive Protein 126.74 mg/L (<8.01); EGFR African American 78.4 (>60); EGFR Non-African American 64.8 (>60); Potassium 3.6 mmol/L (3.5-5.0)
[2020-09-25] MEDS: Polyethylene Glycol 3350 17 GM PACKET PO SCH (09:22)
[2020-09-25] MEDS: Amoxicillin/Clavul 875/125 TAB (Augmentin 875 tab) PO SCH ×2 (09:23→21:43)
[2020-09-26] MEDS: oxyCODONE/Acetamin 5/325 mg TAB PO PRN ×3 (05:05→21:57)
[2020-09-26] MEDS: Heparin 5000 UNITS/ML 1 mL VIAL SUBCUT SCH ×3 (05:06→21:58)
[2020-09-26 06:42] LABS: ABS Eosinophils 0.2 10^3/ul (0-0.6); ABS Lymphocytes 1.3 10^3/ul (1.0-4.8); ABS Monocytes 0.8 10^3/ul (0-0.8); ABS Neutrophils 17.5 10^3/ul (1.5-7.7); Eosinophil % 1.1 %; Hematocrit 38 % (42-52); Hemoglobin 12.5 g/dL (14.0-18.0); Lymphocyte % 6.4 %; Mean Corpuscular HGB Conc 33 g/dL (31-36); Mean Corpuscular Hemoglobin 31 pg (27-31); Mean Corpuscular Volume 94 fL (80-94); Mean Platelet Volume 8.9 fL (7.4-10.4); Nucleated Red Blood Cells % 0.1; Platelet Count 291 10^3/uL (150-450); Red Blood Count 4.07 10^6 /uL (4.18-5.48); Red Cell Distribution Width 17 % (10-15); White Blood Count 19.9 10^3/uL (3.5-10.8)
[2020-09-26 06:53] LABS: BUN/Creatinine Ratio 22.4 (8-20); EGFR African American 88.6 (>60); EGFR Non-African American 73.2 (>60); Potassium 3.9 mmol/L (3.5-5.0)
[2020-09-26] MEDS: Amoxicillin/Clavul 875/125 TAB (Augmentin 875 tab) PO SCH ×2 (09:43→21:56)
[2020-09-26] MEDS: Polyethylene Glycol 3350 17 GM PACKET PO SCH (10:29)
[2020-09-26] MEDS: POLYSACCHARIDE IRON COMPLEX 150 MG PO SCH (12:16)
[2020-09-27] MEDS: Heparin 5000 UNITS/ML 1 mL VIAL SUBCUT SCH ×2 (06:03→13:08)
[2020-09-27] MEDS: Polyethylene Glycol 3350 17 GM PACKET PO SCH (09:46)
[2020-09-27] MEDS: Amoxicillin/Clavul 875/125 TAB (Augmentin 875 tab) PO SCH (09:47)
[2020-09-27 15:34] VITALS: BP 135/70
== END 2020-09-27 16:00 | DRG 871 ==
LOC: ED 21:09 → MED 09-14 01:26 → SUATTDRO 09-14 01:26 → MED 09-14 06:00
PROVIDERS: ADMIT Internal Medicine; ATTEND Internal Medicine